=== PATIENT | male | born 1975 | race African-American/Black ===

== ENCOUNTER 2020-11-06 08:01 | Emergency (ER) | payer MEDICAID, SELFPAY ==
[2020-11-06 08:02] VITALS: BP 167/136; PULSE 107; RESP 18; TEMP 37.6; O2SAT 97; BMI 35.7
--- NOTE | 2020-11-06 08:08 | XR_ITS ---
WS: [id number] Right knee, 3 views, 11/06/2020 Clinical Data: fall Comparison: None. Findings: No fractures or dislocations are seen. The joint spaces are normal. The patella is intact. The soft t issues are unremarkable. XR/XR knee RT 3V* [id number] Impression: Negative right knee.
--- NOTE | 2020-11-06 08:08 | XR_ITS ---
WS: [id number] Left wrist, 3 views, 11/06/2020 Clinical Data: fall Comparison: None. Findings: No fractures or dislocations are seen. The carpal bones are intact. There is no soft tissue swelling. The distal radius and ulna are not remarkable. XR/XR wrist LT min 3V* [id number] Impression: Negative left wrist.
--- NOTE | 2020-11-06 08:08 | XR_ITS ---
WS: [id number] Right ankle, 3 views, 11/06/2020 Clinical Data: fall Comparison: None. Findings: No fractures or dislocations are seen. The ankle mortise is normal. The talus and calcaneus are unrem arkable. There is soft tissue swelling over the lateral malleolus. There is a small plantar spur. XR/XR ankle RT min 3V* [id number] Impression: 1. Soft tissue swelling over lateral malleolus. 2. Negative for right ankle fracture.
--- NOTE | 2020-11-06 08:09 | ED_ITS ---
HPI - Fall General: Chief Complaint: Fall Stated Complaint: FALL, R ANKLE, L WRIST PAIN Time Seen by Provider: 11/06/20 08:02 Source: patient and EMS Mode of arrival: EMS Limitations: no limitations History of Present Illness: HPI Narrative: Patient is a 45-year-old male who presents to ED today via EMS for evaluation following a slip and fall. Patient tells me accidentally slipped on a rock yesterday and fell. He states he twisted his right ankle. He tells me he normally has pain in his right knee but it is worse than baseline currently. He also feels like he sprained his left wrist. He did not strike his head/no LOC. No neck or back pain. Patient was ambulatory following the fall but states when he woke up this morning he noticed the right ankle very swollen and more painful. He states he is not able to ambulate on the extremity due to the discomfort of his ankle and knee. MD complaint: fall Onset (ago): day(s) (yesterday) Fall from: standing Fall witnessed: yes, by family Place fall occurred: other (outdoors) Loss of consciousness: None Prolonged down time: no Symptoms prior to fall: none Context: tripped/slipped Location of injury - extremities: Left: arm and Right: knee and ankle Associated symptoms-after fall: Reports difficulty walking (secondary to pain in R ankle/knee); Denies chest pain or neck pain Review of Systems Const: Denies: fever(s) Eyes: Denies: change in vision or blurry vision Card: Denies: chest pain Resp: Denies: dyspnea Musc: Reports: joint pain (R ankle, R knee, L wrist) and joint swelling (R ankle); Denies: neck pain, back pain, extremity pain, extremity swelling, joint redness or joint warmth Neuro: Reports: difficulty walking (secondary to pain in R ankle/knee); Denies: numbness in extremities, weakness in extremities or sensory changes Physical Exam Const: COMMON NORMALS: no acute distress, patient oriented x3, no limitations, healthy appearing and alert GENERAL APPEARANCE: cooperative ORIENTATION/CONSCIOUSNESS: Yes awake, Yes oriented to person, Yes oriented to place and Yes oriented to time HENMT: COMMON NORMALS: normocephalic and atraumatic HEAD & SCALP: normocephalic and atraumatic Neck/C-Spine: COMMON NORMALS: full ROM CERVICAL SPINE: Yes cervical ROM normal, No pain with cervical ROM and No Cervical spine tenderness Resp: COMMON NORMALS: normal respiratory effort Back/Pelvis: COMMON NORMALS: thoracic and lumbar spine normal to inspection, no thoracic nor lumbar tenderness and thoraco-lumbar ROM normal Extremity: GENERAL: Yes normal exam except as noted LEFT UPPER EXTREMITY: Yes wrist (mild tenderness to dorsal distal wrist; NV intact; good ROM) RIGHT LOWER EXTREMITY: Yes knee joint (TTP medial joint line; effusion present that pt states is normal for him) Right knee: Yes ROM (normal) and Yes neurovascular exam (normal) and Yes foot & digits (swelling and tenderness to medial/lateral ankle; NV intact; no deformities ) Neuro: HEATHER COMA SCALE: document GCS findings [place] coma scale eye opening: Spontaneous Heather coma scale verbal response: Orientated [place] coma scale motor response: Obey commands [place] coma scale total score: 15 COMMON NORMALS: patient oriented x3 SENSORIUM/ORIENTATION: Yes alert, Yes oriented to person, Yes oriented to place and Yes oriented to time Skin: TRAUMA: no lacerations or abrasions Course Vital Signs: Vital signs: Vital Signs Temperature 99.7 F H 11/06/20 08:02 Pulse Rate 107 H 11/06/20 08:02 Respiratory Rate 18 11/06/20 08:02 Blood Pressure 167/136 11/06/20 08:02 Pulse Oximetry 97 11/06/20 08:02 MDM - Fall MDM Narrative: Medical decision making narrative: XRs neg. Will DC with JOSEPHINE wrap/crutches and instructions for RICE therapy. Follow up with PCP in one week for continued or non-improving pain. Imaging Data^: XR R knee: Radiologist's impression: [address] [id number] ReportSigned Patient: Sania Marcus #: [id number]: [id number]#:[id number]/Sex: 45 / MADM Date: 11/06/20Loc: ERRoom/Bed:Attending Dr: Ordering Provider/Ordering MD: Jovanna Stanley Date of Service: 11/06/20 Procedure(s): XR knee RT 3V* [id number] Accession Number(s): [id number] Report Number: [id number] WS: [id number] Right knee, 3 views, 11/06/2020 Clinical Data: fall Comparison: None. Findings: No fractures or dislocations are seen. The joint spaces are normal. The patella is intact. The soft tissues are unremarkable. XR/XR knee RT 3V* [id number] Impression: Negative right knee. Dictated By:Bambi Oconnell MDSigned By:Bambi Oconnell MDSigned Date/Time:11/06/20 0831DD/ 0830 XR L wrist: Radiologist's impression: [employer] [address] [place] [id number] XRay Report Signed Patient: Derek Marcus Unit #: [id number] : 1975 Age/Sex: 45 / M ADM Date: 11/06/20 Loc: ER Room/Bed: Attending Dr: Ordering Provider/Ordering MD: Jovanna Stanley Date of Service: 11/06/20 Procedure(s): XR wrist LT min 3V* [id number] Accession Number(s): [id number] Report Number: [id number] WS: [id number] Left wrist, 3 views, 11/06/2020 Clinical Data: fall Comparison: None. Findings: No fractures or dislocations are seen. The carpal bones are intact. There is no soft tissue swelling. The distal radius and ulna are not remarkable. XR/XR wrist LT min 3V* [id number] Impression: Negative left wrist. Dictated By: Bambi Oconnell MD Signed By: Bambi Oconnell MD Signed Date/Time: 11/06/20 0833 DD/ 0832 XR R ankle: Radiologist's impression: [employer] [address] [place] [id number] XRay Report Signed Patient: Derek Marcus Unit #: [id number] : 1975 Age/Sex: 45 / M ADM Date: 11/06/20 Loc: ER Room/Bed: Attending Dr: Ordering Provider/Ordering MD: Jovanna Stanley Date of Service: 11/06/20 Procedure(s): XR ankle RT min 3V* 36665 Accession Number(s): [id number] Report Number: [id number] WS: [id number] Right ankle, 3 views, 11/06/2020 Clinical Data: fall Comparison: None. Findings: No fractures or dislocations are seen. The ankle mortise is normal. The talus and calcaneus are unremarkable. There is soft tissue swelling over the lateral malleolus. There is a small plantar spur. XR/XR ankle RT min 3V* 11272 Impression: 1. Soft tissue swelling over lateral malleolus. 2. Negative for right ankle fracture. Dictated By: Bambi Oconnell MD Signed By: Bambi Oconnell MD Signed Date/Time: 11/06/20831 DD/ 0 Discharge Plan Discharge Patient Disposition: Home Clinical Impression: Inversion sprain of right ankle Qualifiers: Encounter type: initial encounter Qualified Code(s): S93.401A - Sprain of unspecified ligament of right ankle, initial encounter Left wrist sprain Qualifiers: Encounter type: initial encounter Qualified Code(s): S63.502A - Unspecified sprain of left wrist, initial encounter Condition: Stable Discharge Orders: Discharge ED (Routine); Ordered 11/06/20 Ordered By: Jovanna Stanley Patient Instructions: Ankle Sprain (ED), RICE Therapy (ED) Coding Level of Care Code ED [employer] for Chg Fwd Exam Comprehensive
== END 2020-11-06 08:50 | disposition home or self-care (01) ==
PROVIDERS: Emergency Provider Physician Assistant
DX: S93.401A Sprain of unspecified ligament of right ankle, initial encounter (principal); S63.502A Unspecified sprain of left wrist, initial encounter; W01.0XXA Fall on same level from slipping, tripping and stumbling without subsequent striking against object, initial encounter
CPT/HCPCS: 73110; 73562; 73610; 99283; E0114

== ENCOUNTER 2020-11-11 15:31 | Outpatient (CLI) | payer MEDICAID, SELFPAY ==
--- NOTE | 2020-11-11 | XR_ITS ---
WS: [id number] SCREENING DEXA SCAN [facility] CLINICAL INFORMATION: OSTEOPENIA COMPARISON: None. FINDINGS: The L1-L4 bone mineral density measures 1.22. This corresponds to a T score score of 0.1 and Z score of -1.3. Left femoral neck bone mineral density measures 0.980 g/cm2. This corresponds to a T score of -0.8 an d Z score of -2.0. Right femoral neck bone mineral density measures 0.991 g/cm2. This corresponds to a T score -0.8of an d Z score of -1.9. Mean femoral neck bone mineral density measures 0.985 g/cm2. This corresponds to a T score of -0.8 an d Z score of -1.9. XR/XR DEXA axial skeleton* 41447 IMPRESSION: Normal bone mineralization. Patient's FRAX calculated 10 year probability for major osteoporotic fracture i s 0.8 % and osteoporotic hip fracture is 0.0%.
== END 2020-11-11 15:32 | disposition home or self-care (01) ==
LOC: RADWPI 15:35
PROVIDERS: Visit Provider Family Medicine
DX: M85.80 Other specified disorders of bone density and structure, unspecified site (principal)
CPT/HCPCS: 77080

== ENCOUNTER 2021-06-17 10:39 | Outpatient (CLI) | payer MEDICAID, SELFPAY ==
--- NOTE | 2021-06-17 10:45 | US_ITS ---
WS: [id number] ULTRASOUND RENAL TECHNIQUE: Ultrasound examination of both kidneys. CLINICAL INFORMATION: STAGE 3B CHRONIC KIDNEY DISEASE COMPARISON: None. FINDINGS: RIGHT: Right kidney is normal in size and appearance. Echogenicity: Normal. Cortical thickness: 1.3 cm; Normal. Hydronephrosis: None. Perinephric fluid: None. Right kidney measures: 12.0 cm x 4.8 cm x 4.7 cm. LEFT: Superior pole left kidney is difficult to visualize. Left kidney is normal in size and appearance. Echogenicity: Normal. Cortical thickness: 1.3 cm; Normal. Hydronephrosis: None. Perinephric fluid: None. Left kidney measures: 11.4 cm x 3.8 cm x 4.7 cm. Normal visualized aorta. Normal bladder. US/US renal BI* [id number] IMPRESSION: 1. Superior pole left kidney is difficult to visualize. 2. Otherwise normal renal ultrasound
[2021-06-17 11:25] LABS: Basophils # 0.1 10^3/uL (0.0-0.1); Basophils % 1.3 %; Eosinophils # 0.2 10^3/uL (0.0-0.8); Eosinophils % 3.8 %; Hematocrit 41.2 % (42.0-52.0); Hemoglobin 13.4 g/dL (11.7-16.6); Lymphocytes # 1.4 10^3/uL (0.8-4.8); Lymphocytes % 35.9 %; Mean Corpuscular HGB Conc 32.5 g/dL (30.0-36.0); Mean Corpuscular Hemoglobin 30.8 pg (28.0-34.0); Mean Corpuscular Volume 94.7 fl (80-94); Mean Platelet Volume 12.5 fL (7.4-10.4); Monocytes # 0.5 10^3/uL (0.2-0.9); Monocytes % 12.6 %; Neutrophils # 1.83 10^3/uL (1.8-7.7); Neutrophils % 45.9 %; Nucleated Red Blood Cells % 0 %; Platelet Count 214 10^3/cmm (130-400); Red Blood Count 4.35 10^6/uL (4.1-5.3); Red Cell Distribution Width 14.5 % (12.1-15.1)
[2021-06-17 11:44] LABS: Albumin Level 3.9 g/dL (3.5-5.2); Blood Urea Nitrogen 11 mg/dL (6-20); Calcium 8.1 mg/dL (8.5-10.5); Carbon Dioxide 23 mmol/L (22-29); Chloride 104 mmol/L (98-107); Glomerular Filtration Rate 57.1 mL/min (90-130); Glucose 91 mg/dL (65-115); Phosphorus 2.7 mg/dL (2.5-4.5); Sodium 139 mmol/L (136-145)
[2021-06-17 11:47] LABS: Anion Gap 16.5 (5-19); Potassium 4.5 mmol/L (3.5-5.1)
[2021-06-17 12:22] LABS: Calcium 8.1 mg/dL (8.5-10.5)
[2021-06-17 12:29] LABS: Parathyroid Hormone 125.4 pg/mL (15-65)
== END 2021-06-17 10:40 | disposition home or self-care (01) ==
PROVIDERS: Visit Provider Registered Nurse
DX: N18.32 Chronic kidney disease, stage 3b (principal); N18.4 Chronic kidney disease, stage 4 (severe)
CPT/HCPCS: 36415; 76770; 80069; 82310; 82652; 83970; 85025

== ENCOUNTER 2021-09-09 11:46 | Outpatient (CLI) | payer MEDICAID, SELFPAY ==
--- NOTE | 2021-09-09 12:01 | XRR_ITS ---
PROCEDURE INFORMATION: Exam: XR Right Knee Exam date and time: 09/09/2021 12:01 PM Age: 46 years old Clinical indication: Pain; Knee; Right; Patient HX: Siatic and bones spurs, numbness in both thighs; Additional info: Pain in right knee TECHNIQUE: Imaging protocol: XR Right knee. Views: 1 or 2 views. COMPARISON: CR XR knee RT 3V* [id number] 11/06/2020 8:15 AM FINDINGS: Bones/joints: Normal. Soft tissues: Normal. XR/XR knee RT 1-2V 94910 IMPRESSION: No acute findings.
--- NOTE | 2021-09-09 12:01 | XRR_ITS ---
PROCEDURE INFORMATION: Exam: XR Lumbosacral Spine Exam date and time: 09/09/2021 12:01 PM Age: 46 years old Clinical indication: Low back pain; Patient HX: Siatic and bones spurs, numbness in both thighs; Additional info: Chronic back pain TECHNIQUE: Imaging protocol: XR of the lumbosacral spine. Views: 4 or 5 views. COMPARISON: No relevant prior studies available. FINDINGS: Bones/joints: Multilevel mild productive degenerative endplate changes throughout the visualized thoracolumbar spine. Soft tissues: Unremarkable. XR/XR lumbar spine min 4V 27460 IMPRESSION: Multilevel mild productive degenerative endplate changes throughout the visualized thoracolumbar spine.
== END 2021-09-09 11:47 | disposition home or self-care (01) ==
LOC: RAD 11:52
PROVIDERS: PCP Nurse Practitioner Family; Visit Provider Nurse Practitioner Family
DX: M25.561 Pain in right knee (principal); M54.50 Low back pain, unspecified
CPT/HCPCS: 72110; 73560

== ENCOUNTER 2021-10-01 06:57 | Outpatient (CLI) | payer MEDICAID, SELFPAY ==
--- NOTE | 2021-10-01 12:59 | PFTS_ITS ---
Date of Study:10/01/21 Date of Dictation: MECHANICS: Forced vital capacity (FVC) is reduced. Forced expiratory volume in one second (FEV1) is reduced. FEV1/FVC is normal. FLOW VOLUME LOOP: Reduced flow at all lung volumes with scooping. LUNG VOLUMES: Total lung capacity (TLC) is normal. Residual volume (RV) is increased. DIFFUSING CAPACITY FOR CARBON MONOXIDE: Mild reduced. INTERPRETATION: The postbronchodilator spirometry is consistent with moderate restriction. However, this is likely secondary to paradoxical bronchospasm. The prebronchodilator spirometry is consistent with mild restriction. Lung volumes are consistent with air trapping. Gas exchange (DLCO) is mildly reduced. The overall pulmonary function tests are consistent with nonspecific ventilatory limitations. The spirometry is consistent with restrictive defect however there is no reduction in total lung capacity. The patient likely has a combined obstructive and restrictive ventilatory defect. MTDD
== END 2021-10-01 06:58 | disposition home or self-care (01) ==
LOC: RT 06:59
PROVIDERS: PCP Nurse Practitioner Family; Visit Provider Nurse Practitioner Family
DX: J43.9 Emphysema, unspecified (principal); R06.02 Shortness of breath; Z72.0 Tobacco use
CPT/HCPCS: 94060; 94726; 94729; 99204; J7611

== ENCOUNTER → 2022-01-29 13:44 | Outpatient (BNVA) | payer MEDICAID, SELFPAY | PROVIDERS: PCP Nurse Practitioner Family; Referring Provider Nurse Practitioner Family; Visit Provider Orthopaedic Surgery | DX: M54.50 Low back pain, unspecified (principal); M79.606 Pain in leg, unspecified | CPT/HCPCS: 99204 ==

== ENCOUNTER 2022-03-12 07:25 | Outpatient (CLI) | payer MEDICAID, SELFPAY ==
--- NOTE | 2022-03-12 07:37 | US_ITS ---
WS: [id number] ULTRASOUND RENAL TECHNIQUE: Ultrasound examination of both kidneys. CLINICAL INFORMATION: FLANK PAIN COMPARISON: Ultrasound June 17, 2021 FINDINGS: RIGHT: Right kidney is normal in size and appearance. Echogenicity: Normal. Cortical thickness: 1.5 cm; Normal. Hydronephrosis: None. Perinephric fluid: None. Right kidney measures: 11.4 cm x 4.4 cm x 4.9 cm. LEFT: Left kidney is normal in size and appearance. Echogenicity: Normal. Cortical thickness: 1.7 cm; Normal. Hydronephrosis: None. Perinephric fluid: None. Left kidney measures: 11.5 cm x 4.8 cm x 4.8 cm. Normal visualized aorta. US/US renal BI* [id number] IMPRESSION: 1. No hydronephrosis in either kidney. Kidneys are normal in appearance today. 2. Normal bladder. 3. No other suspicious findings.
== END 2022-03-12 07:26 | disposition home or self-care (01) ==
LOC: RAD 07:25
PROVIDERS: PCP Nurse Practitioner Family; Visit Provider Registered Nurse
DX: R10.9 Unspecified abdominal pain (principal)
CPT/HCPCS: 76770

== ENCOUNTER → 2022-03-13 09:58 | Outpatient (BNVA) | payer MEDICAID, SELFPAY | PROVIDERS: PCP Nurse Practitioner Family; Visit Provider Internal Medicine Cardiovascular Disease | DX: Z45.02 Encounter for adjustment and management of automatic implantable cardiac defibrillator (principal) | CPT/HCPCS: 93284 ==

== ENCOUNTER 2022-05-05 12:18 | Outpatient (CLI) | payer MEDICAID, SELFPAY ==
[2022-05-05 12:59] LABS: Basophils % 0.7 %; Eosinophils # 0.1 10^3/uL (0.0-0.8); Eosinophils % 1.7 %; Hematocrit 43.5 % (42.0-52.0); Hemoglobin 14.8 g/dL (11.7-16.6); Lymphocytes # 1.5 10^3/uL (0.8-4.8); Lymphocytes % 32.5 %; Mean Corpuscular Hemoglobin 31.4 pg (28.0-34.0); Mean Corpuscular Volume 92.2 fl (80-94); Mean Platelet Volume 12.2 fL (7.4-10.4); Monocytes # 0.5 10^3/uL (0.2-0.9); Monocytes % 9.8 %; Neutrophils # 2.52 10^3/uL (1.8-7.7); Neutrophils % 55.1 %; Nucleated Red Blood Cells % 0 %; Platelet Count 245 10^3/cmm (130-400); Red Blood Count 4.72 10^6/uL (4.1-5.3); Red Cell Distribution Width 16.2 % (12.1-15.1); White Blood Count 4.6 10^3/uL (4.0-10.0)
[2022-05-05 13:35] LABS: 25 Hydroxy Vitamin D 42 ng/mL (30-100); Albumin Level 3.8 g/dL (3.5-5.2); Blood Urea Nitrogen 11 mg/dL (6-20); Calcium 8.9 mg/dL (8.5-10.5); Carbon Dioxide 28 mmol/L (22-29); Chloride 97 mmol/L (98-107); Glomerular Filtration Rate 66.3 mL/min (90-130); Glucose 122 mg/dL (65-115); Phosphorus 2.7 mg/dL (2.5-4.5); Sodium 137 mmol/L (136-145)
== END 2022-05-05 12:19 | disposition home or self-care (01) ==
LOC: LAB 12:20
PROVIDERS: PCP Nurse Practitioner Family; Visit Provider Registered Nurse
DX: R07.9 Chest pain, unspecified (principal); I13.0 Hypertensive heart and chronic kidney disease with heart failure and stage 1 through stage 4 chronic kidney disease, or unspecified chronic kidney disease; I50.9 Heart failure, unspecified; N18.9 Chronic kidney disease, unspecified; Z95.810 Presence of automatic (implantable) cardiac defibrillator; R00.0 Tachycardia, unspecified
CPT/HCPCS: 36415; 80069; 82306; 82310; 83970; 85025; 99214

== ENCOUNTER 2022-05-18 12:52 | Outpatient (CLI) | payer MEDICAID, SELFPAY ==
[2022-05-18 13:34] LABS: Creatinine Urine, Random 53 mg/dL (39-259); Microalbum Creatinine Ratio Ur 19 mg/dL (0-20); Microalbumin Random Urine 1 ug/dL (0-20)
== END 2022-05-18 12:53 | disposition home or self-care (01) ==
LOC: LAB 12:55
PROVIDERS: PCP Nurse Practitioner Family; Visit Provider Registered Nurse
DX: N18.32 Chronic kidney disease, stage 3b (principal); R56.9 Unspecified convulsions
CPT/HCPCS: 82044; 95812; 95816

== ENCOUNTER 2022-05-21 10:06 | Outpatient (CLI) | payer MEDICAID, SELFPAY ==
--- NOTE | 2022-05-21 10:45 | IR_ITS ---
WS: [id number] LUMBAR MYELOGRAM HISTORY: M54.9 - Dorsalgia, unspecified COMPARISON: None available. FLUOROSCOPY TIME: 1min [id number] # of spot films: 5 Procedure, risks and complications were explained to the patient. Risks including bleeding, infection , headaches, allergic reaction and seizures. Consent has been obtained. With the patient in prone position the skin over the lumbar region is cleansed with ChloraPrep and an esthetized with lidocaine. 22-gauge spinal needle is inserted into the thecal sac at the appropriate level determined by fluoroscopy. Omnipaque 240; 12 ml is injected slowly under fluoroscopy with no co mplications. Needle bevel is perpendicular to the longitudinal fibers of the dura. Stylet is reinsert ed prior to removal of the needle. Patient tolerated the procedure well. Patient will proceed to CT f or further evaluation. Normal posterior lumbar alignment. No fractures. Very mild disc bulging encroaching upon the ventral thecal sac at L3-4 and L4-5. IR/IR myelogram [place] lumbar 48971 IMPRESSION: 1. Uncomplicated lumbar myelogram. CT to follow. 2. No significant stenosis or fractures identified.
--- NOTE | 2022-05-21 10:45 | CT_ITS ---
WS: [id number] CT MYELOGRAM LUMBAR SPINE HISTORY: M54.9 - Dorsalgia, unspecified TECHNIQUE: Contiguous 2.0 mm axial imaging performed from T12 through the mid sacral level. Bone and soft tissue windows reviewed. Sagittal and coronal reformats are submitted and reviewed. DLP: 1400.[address] scans at [facility] use at least one of these dose optimization techniques: automated e xposure control; mA and/or kV adjustment per patient size (includes targeted exams where dose is matc hed to clinical indication); or iterative reconstruction. COMPARISON: None available. Normal posterior lumbar alignment. Disc spaces and vertebral body heights are normal. Conus tapers no rmally and ends near the mid L2 level. No pars defects. L1-L2: Normal. L2-L3: Normal. L3-L4: Very mild disc bulging with mild facet joint arthritis. Mild ligamentum flavum hypertrophy. No high-grade stenosis. There is very mild narrowing and encroachment upon the subarticular recesses an d the foramina. Slightly greater on the RIGHT. L4-L5: Mild annular disc bulge. No focal protrusion. Mild facet joint arthritis. Very mild widening o f the RIGHT facet joint. Mild bilateral subarticular recess and foraminal encroachment. L5-S1: Minimal disc bulging. Mild bilateral facet joint arthritis. Minimal foraminal narrowing. Mild bilateral perinephric stranding. Hyperdense 6 mm mass within the posterior LEFT kidney. Probably representing a hemorrhagic cyst. No obstruction. CT/CT lumbar spine w con [id number] IMPRESSION: 1. No high-grade central or foraminal stenosis. No large disc protrusions. 2. Mild foraminal and subarticular recess encroachment at L3-4 and L4-5 by dis c and facet disease. 3. Mild foraminal narrowing at L5-S1.
[2022-05-21] MEDS: iohexol 240 mg/mL 50 mL Btl INTRATHECA (11:18)
== END 2022-05-21 10:07 | disposition home or self-care (01) ==
LOC: RAD 10:07
PROVIDERS: PCP Nurse Practitioner Family; Visit Provider Orthopaedic Surgery
DX: M54.9 Dorsalgia, unspecified (principal)
CPT/HCPCS: 62304; 72132; Q9966

== ENCOUNTER → 2022-06-30 14:26 | Outpatient (BNVA) | payer MEDICAID, SELFPAY | PROVIDERS: PCP Nurse Practitioner Family; Visit Provider Orthopaedic Surgery | DX: M47.816 Spondylosis without myelopathy or radiculopathy, lumbar region (principal) | CPT/HCPCS: 99214 ==

== ENCOUNTER → 2022-07-27 09:51 | Outpatient (BNVA) | payer MEDICAID, SELFPAY | PROVIDERS: PCP Nurse Practitioner Family; Visit Provider Anesthesiology Pain Medicine | DX: M54.16 Radiculopathy, lumbar region (principal); M47.816 Spondylosis without myelopathy or radiculopathy, lumbar region | CPT/HCPCS: 99204 ==

== ENCOUNTER → 2022-08-13 12:58 | Outpatient (BNVA) | payer MEDICAID, SELFPAY | PROVIDERS: PCP Nurse Practitioner Family; Visit Provider Anesthesiology Pain Medicine | DX: M47.816 Spondylosis without myelopathy or radiculopathy, lumbar region (principal) | CPT/HCPCS: 64493; 64494; 64495; J3490 ==

== ENCOUNTER → 2022-08-27 10:50 | Outpatient (BNVA) | payer MEDICAID, SELFPAY | PROVIDERS: PCP Nurse Practitioner Family; Visit Provider Anesthesiology Pain Medicine | DX: M47.816 Spondylosis without myelopathy or radiculopathy, lumbar region (principal) | CPT/HCPCS: 99214 ==

== ENCOUNTER → 2022-09-09 13:49 | Outpatient (BNVA) | payer MEDICAID, SELFPAY | PROVIDERS: PCP Nurse Practitioner Family; Visit Provider Anesthesiology Pain Medicine | DX: M54.16 Radiculopathy, lumbar region (principal); Z95.810 Presence of automatic (implantable) cardiac defibrillator | CPT/HCPCS: 64635; 64636; 93289; J1030 ==

== ENCOUNTER → 2022-09-29 09:21 | Outpatient (BNVA) | payer MEDICAID, SELFPAY | PROVIDERS: PCP Nurse Practitioner Family; Visit Provider Anesthesiology Pain Medicine | DX: M47.816 Spondylosis without myelopathy or radiculopathy, lumbar region (principal) | CPT/HCPCS: 99214 ==

== ENCOUNTER → 2022-10-26 10:03 | Outpatient (BNVA) | payer MEDICAID, SELFPAY | PROVIDERS: PCP Nurse Practitioner Family; Visit Provider Anesthesiology Pain Medicine | DX: M47.816 Spondylosis without myelopathy or radiculopathy, lumbar region (principal); M48.061 Spinal stenosis, lumbar region without neurogenic claudication | CPT/HCPCS: 99214 ==

== ENCOUNTER → 2022-11-26 10:15 | Outpatient (BNVA) | payer MEDICAID, SELFPAY | PROVIDERS: PCP Nurse Practitioner Family; Visit Provider Orthopaedic Surgery | DX: Z01.818 Encounter for other preprocedural examination (principal); M48.062 Spinal stenosis, lumbar region with neurogenic claudication | CPT/HCPCS: 36415; 80053; 85025; 99214 ==

== ENCOUNTER → 2023-01-15 10:54 | Outpatient (BNVA) | payer MEDICAID, SELFPAY | PROVIDERS: PCP Nurse Practitioner Family; Visit Provider Internal Medicine Cardiovascular Disease | DX: Z01.818 Encounter for other preprocedural examination (principal); J41.0 Simple chronic bronchitis; Z95.810 Presence of automatic (implantable) cardiac defibrillator; I13.0 Hypertensive heart and chronic kidney disease with heart failure and stage 1 through stage 4 chronic kidney disease, or unspecified chronic kidney disease; N18.31 Chronic kidney disease, stage 3a; I50.9 Heart failure, unspecified; F17.210 Nicotine dependence, cigarettes, uncomplicated | CPT/HCPCS: 93289; 99214 ==

== ENCOUNTER → 2023-01-18 10:29 | Outpatient (BNVA) | payer MEDICAID, SELFPAY | PROVIDERS: PCP Nurse Practitioner Family; Visit Provider Anesthesiology Pain Medicine | DX: M48.062 Spinal stenosis, lumbar region with neurogenic claudication (principal); M47.816 Spondylosis without myelopathy or radiculopathy, lumbar region | CPT/HCPCS: 99213 ==

== ENCOUNTER → 2023-02-16 15:54 | Outpatient (BNVA) | payer MEDICAID, SELFPAY | PROVIDERS: PCP Nurse Practitioner Family; Visit Provider Orthopaedic Surgery | DX: M48.062 Spinal stenosis, lumbar region with neurogenic claudication (principal); Z01.818 Encounter for other preprocedural examination | CPT/HCPCS: 72110; 99214 ==

== ENCOUNTER 2023-02-25 09:47 | Outpatient (CLI) | payer MEDICAID, SELFPAY ==
[2023-02-25 11:18] LABS: Basophils % 0.6 %; Eosinophils # 0.2 10^3/uL (0.0-0.8); Eosinophils % 3.9 %; Lymphocytes # 1.4 10^3/uL (0.8-4.8); Lymphocytes % 28.5 %; Mean Corpuscular HGB Conc 34.2 g/dL (30-55); Mean Corpuscular Hemoglobin 31.3 pg (27-33); Mean Corpuscular Volume 91.3 fl (82-101); Mean Platelet Volume 12.5 fL (7.4-10.4); Monocytes # 0.5 10^3/uL (0.2-0.9); Monocytes % 10.7 %; Neutrophils # 2.72 10^3/uL (1.8-7.7); Neutrophils % 56.1 %; Nucleated Red Blood Cells % 0 %; Platelet Count 206 10^3/cmm (157-399); Red Blood Count 4.16 10^6/uL (3.85-5.65); Red Cell Distribution Width 12.8 % (12.1-15.1); White Blood Count 4.85 10^3/uL (3.29-11.43)
[2023-02-25 11:36] LABS: Alanine Aminotransferase 15 U/L (0-41); Albumin Level 4.3 g/dL (3.5-5.2); Alkaline Phosphatase 98 U/L (40-130); Anion Gap 15.9 (5-19); Aspartate Amino Transferase 23 U/L (0-40); Blood Urea Nitrogen 26 mg/dL (6-20); Calcium 8.8 mg/dL (8.5-10.5); Carbon Dioxide 24 mmol/L (22-29); Chloride 101 mmol/L (98-107); Globulin 3.2 g/dL (1.3-4.6); Glomerular Filtration Rate 52.8 mL/min (90-130); Glucose 122 mg/dL (65-115); Osmolality Calculated 290 mOsm/kg (285-295); Potassium 3.9 mmol/L (3.5-5.1); Sodium 137 mmol/L (136-145); Total Bilirubin 0.5 mg/dL (0.15-1.2); Total Protein 7.5 g/dL (6.6-8.7)
== END 2023-02-25 09:48 | disposition home or self-care (01) ==
LOC: LAB 09:50
PROVIDERS: PCP Nurse Practitioner Family; Visit Provider Orthopaedic Surgery
DX: Z01.818 Encounter for other preprocedural examination (principal); M48.062 Spinal stenosis, lumbar region with neurogenic claudication
CPT/HCPCS: 36415; 80053; 85025

== ENCOUNTER → 2023-03-02 14:12 | Outpatient (BNVA) | payer MEDICAID, SELFPAY | PROVIDERS: PCP Nurse Practitioner Family; Visit Provider Family Medicine | DX: Z01.818 Encounter for other preprocedural examination (principal) | CPT/HCPCS: 81000 ==

== ENCOUNTER → 2023-05-10 10:28 | Outpatient (BNVA) | payer MEDICAID, SELFPAY | PROVIDERS: PCP Nurse Practitioner Family; Visit Provider Specialist | DX: G40.909 Epilepsy, unspecified, not intractable, without status epilepticus (principal); Z95.810 Presence of automatic (implantable) cardiac defibrillator; F17.210 Nicotine dependence, cigarettes, uncomplicated | CPT/HCPCS: 99205 ==

== ENCOUNTER 2023-05-10 12:46 | Outpatient (CLI) | payer MEDICAID, SELFPAY ==
--- NOTE | 2023-05-10 13:01 | XRR_ITS ---
PROCEDURE INFORMATION: Exam: XR Abdomen Exam date and time: 05/10/2023 1:23 PM Age: 47 years old Clinical indication: Other: Poor urinary stream TECHNIQUE: Imaging protocol: Radiologic exam of the abdomen. Views: Frontal supine view of the abdomen. 1 View. COMPARISON: No relevant prior studies available. FINDINGS: Gastrointestinal tract: Normal. No bowel dilation. Organs: No identifiable urinary tract calcifications. Bones/joints: Unremarkable. XR/XR abdomen 1V* [id number] IMPRESSION: No acute findings.
== END 2023-05-10 12:47 | disposition home or self-care (01) ==
LOC: RAD 12:50
PROVIDERS: PCP Nurse Practitioner Family; Visit Provider Nurse Practitioner Family
DX: R39.12 Poor urinary stream (principal)
CPT/HCPCS: 74018

== ENCOUNTER 2023-05-12 14:20 | Inpatient (IN) | payer MEDICAID, SELFPAY ==
[2023-05-12] VITALS (25 sets, daily range): BP systolic 128–173; BP diastolic 74–129; PULSE 67–94; RESP 9–25; TEMP 36.1–36.7; O2SAT 94–100; BMI 29.9
--- NOTE | 2023-05-12 | XR_ITS ---
WS: [id number] Lumbar spine, C-arm fluoroscopy views, 05/12/2023 Clinical Data: OR pic, lumbar spinal fusion Comparison: Lumbar spine, 02/16/2023 Findings: Dr. Matamoros performed a posterior lumbosacral fusion. Impression: Posterior lumbosacral fusion.
[2023-05-12] MEDS: sodium chloride 0.9% 1,000 ML 30 ML IV (07:14)
[2023-05-12 07:28] LABS: Basophils # 0.1 10^3/uL (0.0-0.1); Basophils % 1.1 %; Eosinophils # 0.2 10^3/uL (0.0-0.8); Eosinophils % 4.3 %; Hematocrit 41.2 % (37-53); Lymphocytes % 42.3 %; Mean Corpuscular HGB Conc 33.5 g/dL (30-55); Mean Corpuscular Volume 95.6 fl (82-101); Mean Platelet Volume 11.7 fL (7.4-10.4); Monocytes # 0.4 10^3/uL (0.2-0.9); Monocytes % 8.5 %; Neutrophils # 2.03 10^3/uL (1.8-7.7); Neutrophils % 43.4 %; Nucleated Red Blood Cells % 0 %; Platelet Count 235 10^3/cmm (157-399); Red Blood Count 4.31 10^6/uL (3.85-5.65); Red Cell Distribution Width 14.1 % (12.1-15.1); White Blood Count 4.68 10^3/uL (3.29-11.43)
[2023-05-12 07:51] LABS: Blood Urea Nitrogen 20 mg/dL (6-20); Calcium 8.9 mg/dL (8.5-10.5); Carbon Dioxide 25 mmol/L (22-29); Chloride 102 mmol/L (98-107); Glomerular Filtration Rate 52.8 mL/min (90-130); Glucose 111 mg/dL (65-115); Osmolality Calculated 289 mOsm/kg (285-295); Sodium 138 mmol/L (136-145)
[2023-05-12 07:53] LABS: Anion Gap 15.5 (5-19); Potassium 4.5 mmol/L (3.5-5.1)
--- NOTE | 2023-05-12 09:01 | P.ANESASSM_ITS ---
Pre-Anesthetic Assessment Height/Weight: Height 1.91 m Weight 108.862 kg Temp Pulse Resp BP Pulse Ox O2 Del Method 98.1 F 88 18 134/91 98 Room Air 05/12/23 07:03 05/12/23 07:03 05/12/23 07:03 05/12/23 07:03 05/12/23 07:03 05/12/23 07:03 Preop Diagnosis: Lumbar facet arthritis Operation Date: 05/12/23 09:40 Proposed Procedures p Spinal Fusion PSF(Not Applicable) - Ian Matamoros DO s Posterior Lumbar Interbody Fusion PLIF(Not Applicable) - Ian Matamoros DO s Sacroiliac Joint Fusion SI Joint Fusion(Not Applicable) - Ian Matamoros DO Familial anesthetic complications: none Was Beta Checo taken within 24 hours: Yes Was Clonidine taken within 24 hours: N/A Last intake: Intake Last Liquid Date 05/11/23 Last Liquid Time 21:00 Last Solid Date 05/11/23 Last Solid Time 23:00 Social Tobacco and No alcohol Exam alert, oriented x 3, clear to auscultation bilaterally and regular rate & rhythm Airway Submandibular: within normal limits Cervical ROM: within normal limits Mallampati: Class II Dentition: full Pulmonary Chronic Obstructive Pulmonary Disease CV/HEM Congestive Heart Failure (EF 15%) Pacer/AICD Chronic Renal Insufficiency Cr 1.7 [facility] [place] Lower Back Pain and Osteoarthritis/DJD Neuropsych Anxiety and Depression Anesthetic Plan ASA status: 4 Anesthesia: General Other: A.line, discussed transfusion and ICU Medications/Allergies Home Medications Medication Instructions Recorded Confirmed Last Taken Type allopurinol 100 mg tablet 100 mg PO DAILY 10/01/21 05/12/23 05/11/23 History aspirin 81 mg tablet,delayed 81 mg PO DAILY 10/01/21 05/11/23 05/06/23 History release (Adult Low Dose Aspirin) brexpiprazole 0.5 mg tablet 0.5 mg PO DAILY 10/01/21 05/12/23 03/19/23 History (Rexulti) citalopram 40 mg tablet 40 mg PO DAILY 10/01/21 05/12/23 05/11/23 History furosemide 40 mg tablet 40 mg PO BID 10/01/21 05/12/23 05/11/23 History gabapentin 600 mg tablet 800 mg PO DIRECTED 10/01/21 05/12/23 05/11/23 History mirtazapine 15 mg tablet 15 mg PO DAILY 10/01/21 05/12/23 05/11/23 History pantoprazole 40 mg tablet,delayed 40 mg PO BID 10/01/21 05/12/23 05/11/23 History release prazosin 2 mg capsule 2 mg PO .HS 10/01/21 05/12/23 1 Day Ago History ~05/10/23 trazodone 300 mg tablet 300 mg PO .HS 10/01/21 05/12/23 05/11/23 History albuterol sulfate 90 mcg/actuation 2 puff inhalation Q6H PRN 12/16/22 05/12/23 05/11/23 History aerosol inhaler shortness ofbreath potassium chloride 10 mEq 10 meq PO DAILY 12/16/22 05/12/23 05/11/23 History capsule,extended release amlodipine 10 mg tablet 10 mg PO DAILY #90 tabs 01/15/23 05/12/23 05/11/23 Rx spironolactone 25 mg tablet 25 mg PO BID #180 tabs 01/15/23 05/12/23 05/11/23 Rx tizanidine 4 mg tablet 4 mg PO BID PRN muscle spasticity 01/18/23 05/12/23 05/11/23 Rx #60 tabs carvedilol 25 mg tablet 50 mg PO BID #360 tabs 02/04/23 05/12/23 05/11/23 Rx [id number] Bone Growth Stimulator #1 ea 02/26/23 05/10/23 Unknown Rx levetiracetam 750 mg tablet 750 mg PO BID #60 tabs 05/10/23 05/12/23 05/11/23 Rx (Keppra) Allergies Allergy/AdvReac Type Severity Reaction Status Date / Time No Known Allergies Allergy Verified 05/11/23 09:12 Current Medications Generic Name Dose Route Start Last Admin Trade Name Freq PRN Reason Stop Dose Admin Sodium Chloride 1,000 mls @ 30 mls/hr 05/12/23 06:45 05/12/23 07:14 Sodium Chloride 0.9% IV 05/13/23 06:44 30 mls/hr .Q24H NATALYA Administration PFSH Anesthesia Medical History Anxiety Cardiac resynchronization therapy defibrillator (GRANULATING BLENDER-D) in place CHF (congestive heart failure) CKD (chronic kidney disease) COPD (chronic obstructive pulmonary disease) Depression HTN (hypertension) Immunocompromised state PTSD (post-traumatic stress disorder) Pulmonary arterial hypertension Sinus tachycardia Staph skin infection Tobacco dependence Surgical History S/P hemorrhoidectomy S/P placement of cardiac pacemaker Family History Mother Diabetes Heart disease Hypertension Father Diabetes Heart disease Social History Smoking and tobacco/nicotine status: current some day tobacco/nicotine user cigarettes Alcohol intake: current Alcohol intake frequency: holidays/special occasions only Alcohol type: hard liquor Substance/Drug Use: never Data Anesthesia 05/12/23 07:15 05/12/23 07:15 Short CBC 05/12/23 Range/Units 07:15 WBC 4.68 (3.29-11.43) 10^3/uL Hgb 13.80 (11.27-16.99) g/dL Hct 41.2 (37-53) % MCV 95.6 (82-101) fl Plt Count 235 (157-399) 10^3/cmm Neut % (Auto) 43.4 % Neut # (Auto) 2.03 (1.8-7.7) 10^3/uL BMP 05/12/23 07:15 Sodium 138 Potassium 4.5 Chloride 102 Carbon Dioxide 25 BUN 20 Creatinine 1.7 H Glucose 111 Calcium 8.9 Cardiac Studies: No Data to Display
--- NOTE | 2023-05-12 09:23 | W.PM.OPSFHP ---
Same Day Surgery H&P Indication for Procedure/HPI DATE OF PROCEDURE: May 12, 2023 CHIEF COMPLAINT/INDICATIONFOR SURGICAL PROCEDURE: Back pain PREOP DIAGNOSIS: Lumbar facet arthritis PLANNED PROCEDURE: Operation Date: 05/12/23 09:40 Proposed Procedures p Spinal Fusion PSF(Not Applicable) - Ian Matamoros DO s Posterior Lumbar Interbody Fusion PLIF(Not Applicable) - Ian Matamoros DO s Sacroiliac Joint Fusion SI Joint Fusion(Not Applicable) - Ian Matamoros DO Medications/Allergies* Home Medications Medication Instructions Recorded Confirmed Type allopurinol 100 mg tablet 100 mg PO DAILY 10/01/21 05/12/23 History aspirin 81 mg tablet,delayed 81 mg PO DAILY 10/01/21 05/11/23 History release (Adult Low Dose Aspirin) brexpiprazole 0.5 mg tablet 0.5 mg PO DAILY 10/01/21 05/12/23 History (Rexulti) citalopram 40 mg tablet 40 mg PO DAILY 10/01/21 05/12/23 History furosemide 40 mg tablet 40 mg PO BID 10/01/21 05/12/23 History gabapentin 600 mg tablet 800 mg PO DIRECTED 10/01/21 05/12/23 History mirtazapine 15 mg tablet 15 mg PO DAILY 10/01/21 05/12/23 History pantoprazole 40 mg tablet,delayed 40 mg PO BID 10/01/21 05/12/23 History release prazosin 2 mg capsule 2 mg PO .HS 10/01/21 05/12/23 History trazodone 300 mg tablet 300 mg PO .HS 10/01/21 05/12/23 History albuterol sulfate 90 mcg/actuation 2 puff inhalation Q6H PRN 12/16/22 05/12/23 History aerosol inhaler shortness ofbreath potassium chloride 10 mEq 10 meq PO DAILY 12/16/22 05/12/23 History capsule,extended release Allergies/Adverse Reactions Allergy/AdvReac Type Severity Reaction Status Date / Time No Known Allergies Allergy Verified 05/11/23 09:12 Current Medications: Generic Name Dose Route Start Last Admin Trade Name Freq PRN Reason Stop Dose Admin Sodium Chloride 1,000 mls @ 30 mls/hr 05/12/23 06:45 05/12/23 07:14 Sodium Chloride 0.9% IV 05/13/23 06:44 30 mls/hr .Q24H NATALYA Administration Pertinent History/Comorbid Conditions* Medical History (Updated 12/16/22 @ 13:14 by Kevon Rome NP) Anxiety Cardiac resynchronization therapy defibrillator ([employer]-D) in place CHF (congestive heart failure) CKD (chronic kidney disease) COPD (chronic obstructive pulmonary disease) Depression HTN (hypertension) Immunocompromised state PTSD (post-traumatic stress disorder) Pulmonary arterial hypertension Sinus tachycardia Staph skin infection Tobacco dependence Surgical History (Updated 12/16/22 @ 13:06 by Kevon Rome NP) S/P hemorrhoidectomy S/P placement of cardiac pacemaker Family History (Updated 10/01/21 @ 08:19 by Jennifer Helton RN) Diabetes Mother Father Heart disease Mother Father Hypertension Mother Social History Smoking and tobacco/nicotine status: current some day tobacco/nicotine user cigarettes Alcohol intake: current Alcohol intake frequency: holidays/special occasions only Alcohol type: hard liquor Substance/Drug Use: never Pertinent Exam Findings alert and oriented x 3 Recommendations Surgery/Procedure today Coding Level of Care Code Acute Code for Chg Fwd Diagnoses
[2023-05-12] MEDS: ceFAZolin 2,000 MG in sodium chloride 0.9% (plus) 50 ML 100 MG IV ×2 (09:55→17:15)
[2023-05-12] MEDS: heparin, porcine 1,000 unit/mL INJ 10 mL 10000 UNIT IRRIGATION (10:33)
[2023-05-12] MEDS: lidocaine-epi 2% 20 mL INJ INJECTION (10:33)
[2023-05-12] MEDS: vancomycin 1,000 MG SDV 1000 MG XX (11:41)
--- NOTE | 2023-05-12 12:40 | PM.OP ---
Operative Report Date of procedure: May 12, 2023 Pre-op diagnosis: Lumbar facet arthritis Post-op diagnosis: same Procedure done: 1. L3-S1 posterior spine fusion 2. L3- S1 posterior spine instrumentation 3. Use of computer navigation/stereotactic for spine 4. Bone marrow aspiration Surgeon: Ian Matamoros DO Central Sterile Technician: Cam Brewer Central Sterile Technician: The assistant restaurant general manager, Cam Brewer, PAC was needed for his expertise under the microscope. He was important and necessary throughout the procedure to complete in a safe and timely manner. He assisted with patient positioning prepping and draping tissue retraction suctioning of the operative field protection of the dural sac and tissue closure Estimated blood loss (mL): 400 Procedure: 1. L3-S1 posterior spine fusion 2. L3- S1 posterior spine instrumentation 3. Use of computer navigation/stereotactic for spine 4. Bone marrow aspiration Patient is brought to the operative suite.? After undergoing anesthesia, the patient had neuro monitoring attached.? Patient was then placed in the prone position on the [place] table.? All areas of impingement were well-padded.? Patient was then prepped and draped in the normal sterile fashion.? Skin incision was then made over the L3 to the sacrum.? Subperiosteal dissection was made out to the transverse processes of L3 bilaterally,?L4 bilaterally L5 bilaterally and sacral ala bilaterally.? The [employer] bone marrow aspirate kit was used to aspirate bone marrow aspirate.? This was done by using the sharp probe to open up the bone.? Aspiration was performed and then the blunt probe was then used to dissect down to through the bone tunnel.? An aspirating well drawn back a millimeter approximately 20 cc of bone marrow aspirate was used.? Admixed with the allograft and autograft bone that will be used. Next tension was brought to placing the fiducial for the computer navigation.? 2 pins were placed into the right iliac crest.? The fiducial was attached.? The C-arm was brought in and information from the C arm was then linked to the computer used for placing the screws.? Next attention was brought to placing the pedicle screws.? This was done by using the gearshift probe.? The probe was used to identify the pedicle.? Then the pedicle feeler was used followed by placement of screw.? This was done at?L3 bilaterally, L4 bilaterally, L5 bilaterally and S1 bilaterally. Attention was then brought to attaching the rods to the screws placed in the L4 bilaterally L5 bilaterally and S1 bilaterally.?? Caps were torqued into position. Locking the construct in place. Wound was copiously irrigated and then attention was brought to decorticating the facets and transverse processes laterally.? ? This was done bilaterally. Ostial amp bone graft was then packed into the lateral gutters. Wound was then closed in a layered fashion starting with the thoracolumbar fascia.? 0-vicryl was used the sub cutaneous tissue was closed with 2-0 vicryl and skin with 4-0 monocryl.? Glue was then used to seal the skin and a steril dressing was applied.? Patient was then placed in the supine position. The endotracheal tube was removed and patient was transferred to the PACU in stable condition.
[2023-05-12] MEDS: midazolam 1 mg/mL INJ 2 mL 2 MG IVP (12:48)
--- NOTE | 2023-05-12 13:01 | PC.NURSE ---
1241 - FLOWER Bhardwaj remains at pts side with PACU staff - pt irritated - unable to monitor pts blood pressure due to pt continuously - trying to get out of bed - orders rec'd from FLOWER - 1302 - pt currently resting with eyes closed - vss
--- NOTE | 2023-05-12 13:15 | PC.NURSE ---
1309 -arterial line removed from right wrist - pressure held - with pressure dressing applied
[2023-05-12] MEDS: labetalol 5 mg/mL SDV 20mL IVP (13:30)
--- NOTE | 2023-05-12 13:33 | PC.NURSE ---
1328 - Lashae CRENSHAW notified of pts blood pressure - orders rec'd
--- NOTE | 2023-05-12 13:41 | PC.NURSE ---
7985 - report given to WES Kim pre-op - pt denies back pain - continues to state please don't let me urinate on myself - lester previously removed - urinal placed between pts legs - reeducated to pt that urinal is in place and pt is free to void - last pacu bp was sbp of 141 - per FLOWER Bhardwaj order - ok to move to pre op when sbp less than 160 - hemovac remains in place - pt remains on room air with sats 94-97% - notified Judy of removal of lester, removal of art line, urinal placed, labetol given IVP
--- NOTE | 2023-05-12 14:05 | PC.PHAR ---
GABAPENTIN CLARIFICATION - called [facility] 05/12/2023 1400, to verify dose reconciled as 600 mg tablet dose 800 as directed with note 3 tid and 2hs. verified last fill 04/16/2023 = gabapentin 600 mg 1 tid + 2 hs. edited continued home med to reflect clarification.
[2023-05-12] MEDS: lactated ringers 1,000 ML 90 ML IV (15:23)
[2023-05-12] MEDS: HYDROcodone-acetaminophen 5-325 mg Tablet PO (15:23)
[2023-05-12] MEDS: gabapentin 300 mg Capsule 600 MG PO (17:03)
[2023-05-12] MEDS: morphine 4 mg/mL SDV 1 mL 2 MG IVP ×2 (17:04→22:00)
[2023-05-12] MEDS: ketorolac 30 mg/mL INJ IVP (17:04)
[2023-05-12] MEDS: tizanidine 4 mg Tablet PO (17:04)
[2023-05-12] MEDS: FUROsemide 40 mg Tablet PO (17:14)
[2023-05-12] MEDS: pantoprazole DR 40 mg Tablet PO (17:14)
[2023-05-12] MEDS: docusate sodium 100 mg Capsule PO (17:14)
[2023-05-12] MEDS: carvedilol 25 mg Tablet 50 MG PO (17:14)
[2023-05-12] MEDS: levETIRAcetam 500 mg Tablet 750 MG PO (17:15)
[2023-05-12] MEDS: spironolactone 25 mg Tablet PO (17:15)
--- NOTE | 2023-05-12 17:45 | ANE.PACU2 ---
Inpatient post-anesthesia follow up: Airway intact: Yes Vital signs: Temperature 97.6 F Pulse Rate 80 Respiratory Rate 17 Blood Pressure 153/110 Pulse Oximetry 95 Oxygen Delivery Me thod Room Air Oxygen Flow Rate 6 Fraction of Inspir ed Oxygen Hydration adequate: Yes Nausea and vomiting: No Pain level: 4 Mental status: Baseline
[2023-05-12] MEDS: trazodone 150 mg Tablet 300 MG PO (20:45)
[2023-05-12] MEDS: prazosin 1 mg Capsule 2 MG PO (20:45)
[2023-05-12] MEDS: gabapentin 300 mg Capsule 1200 MG PO (20:46)
[2023-05-12] MEDS: mirtazapine 15 mg Tablet PO (23:07)
[2023-05-13] VITALS (10 sets, daily range): BP systolic 115–150; BP diastolic 76–102; PULSE 73–106; RESP 16–18; TEMP 36.3–37.7; O2SAT 94–98
[2023-05-13] MEDS: morphine 4 mg/mL SDV 1 mL 2 MG IVP ×2 (00:39→06:01)
--- NOTE | 2023-05-13 00:50 | PC.NURSE ---
Bleeding from surgical incision soiled dressing and leaked out from bottom of dressing. Hemovac intact and suctioning; marked soiled area on dressing and reinforced dressing with 4x4 gauze and micropore tape.
[2023-05-13] MEDS: HYDROcodone-acetaminophen 5-325 mg Tablet PO ×4 (02:16→17:34)
[2023-05-13] MEDS: lactated ringers 1,000 ML 90 ML IV (02:17)
[2023-05-13] MEDS: ceFAZolin 2,000 MG in sodium chloride 0.9% (plus) 50 ML 100 MG IV ×2 (02:17→08:42)
--- NOTE | 2023-05-13 07:49 | PM.PN ---
Subjective Subjective: POD 1 Patient resting but complaining of spasms and back pain. States that he is having a lot of anxiety as well. Denies chest pain, shortness of breath or headaches. Vitals/I&O/Wt Last Vital Signs Temp 98.1 F 05/13/23 07:37 Pulse 97 05/13/23 07:37 Resp 17 05/13/23 07:37 BP 143/83 05/13/23 07:37 Pulse Ox 97 05/13/23 07:37 O2 Del Method Room Air 05/13/23 07:37 O2 Flow Rate 6 05/12/23 12:39 05/12/23 05/13/23 05/13/23 22:59 06:59 14:59 Intake Total 1010 / 2110 2831 / 4941 Output Total 575 / 1400 925 / 2325 Balance 435 / 710 1906 / 2616 Weight last 48 hrs Weight 240 lb Physical Exam Narrative: Patient presents alert and oriented x3 with a good general appearance normal mood and affect. Normal coordination normal stability. Mild tenderness around the incisional site with the incision appear to be clean and dry with Hemovac drain intact. No signs of erythema or drainage. No signs of infection. Patient denies any fevers or chills. 5/5 motor strength both lower extremities with negative straight leg raise bilaterally. Calves are supple no medial thigh tenderness. Pulses are 2+ at the dorsalis pedis and posterior tibial region. Good capillary refill throughout normal sensation light touch both lower extremities. Urinary Catheter Management: Aguiar: Cath Placed During This Visit: yes, but has since been removed by the nurse Urinary Catheter Date of Insertion: 05/12/23 Urinary Catheter Time of Insertion: 10:15 Date Urinary Catheter Removed: 05/12/23 Time Urinary Catheter Discontinued: 13:30 Data 05/12/23 07:15 05/12/23 07:15 A&P Assessment and plan (1) Status post lumbar spinal fusion: We will switch him to Valium from the tizanidine. Continue the Hemovac drain today. We will have physical therapy to mobilize. Try and gain better pain control and discharge home tomorrow. Continue incentive spirometry for pulmonary toilet. Attestations Medical Necessity Statement*: Attempt to gain better pain control today hopeful discharge home tomorrow Coding Level of Care Code Acute Code for Chg Fwd Diagnoses Status post lumbar spinal fusion Z98.1
[2023-05-13] MEDS: FUROsemide 40 mg Tablet PO ×2 (08:40→17:33)
[2023-05-13] MEDS: allopurinol 100 mg Tablet PO (08:40)
[2023-05-13] MEDS: docusate sodium 100 mg Capsule PO ×2 (08:40→17:33)
[2023-05-13] MEDS: amlodipine 10 mg Tablet PO (08:40)
[2023-05-13] MEDS: gabapentin 300 mg Capsule 600 MG PO ×3 (08:40→17:34)
[2023-05-13] MEDS: spironolactone 25 mg Tablet PO ×2 (08:40→17:33)
[2023-05-13] MEDS: pantoprazole DR 40 mg Tablet PO ×2 (08:40→17:34)
[2023-05-13] MEDS: aspirin 81 mg EC Tablet PO (08:41)
[2023-05-13] MEDS: citalopram 20 mg Tablet 40 MG PO (08:41)
[2023-05-13] MEDS: potassium chloride ER 10 mEq Tablet PO (08:41)
[2023-05-13] MEDS: levETIRAcetam 500 mg Tablet 750 MG PO ×2 (08:41→17:34)
[2023-05-13] MEDS: carvedilol 25 mg Tablet 50 MG PO ×2 (08:42→17:34)
--- NOTE | 2023-05-13 10:51 | PC.CHAP ---
Pastoral Care Encounter/Spiritual Assessment Type of Contact [] Declined hematologist visit [] Patient/Family/Request visit [] Outpatient visit [] Follow-up visit [] Physician referral [] Code/Alert [x] Routine visit [] Staff referral [] Actively dying [] Patient sleeping [] Family support [] [] Out of room [] Palliative care [] [x] Receiving care in room [] Pre-surgical visit [] Trauma [] Long length of stay [] ICU visit [] Other: Relational/Emotional Strength [x] Patient feels connected with others/family/visitors/staff [] Distress [] Loneliness/isolation [] Abandonment Spirituality of Patient [x] Person of Joann [] Attends Jewish of their Joann [x] Believes in Prayer [] Reads Bible or Uatsdin materials [] There are Spiritual issues to be addressed 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 Interventions [x] Prayer [x] Active listening [x] Non-anxious presence [x] Spiritual/emotional support [] Crisis/trauma care [x] Spiritual counseling [] Bereavement support [] Provided bereavement packet [] Provided Bible/devotional materials [] Provided toy/stuffed animal, coloring book to patient or family member [] Provided Communion [] Anointing/[place] [] Salvation [x] Completed spiritual assessment [] Other: Impact on Illness or Injury [] Angry [] Fearful [] Anxious [] Often cries [] Exhaustion [] Unable to work [] Unable to attend restorationism [] Unable to walk/stand [] Unable to read [] Unable to drive [] Unable to eat/drink [] Unable to sleep [] Unable to be with family [] Patient intubated [] Other: Summary proceeduer on back has zero movement well have rehab at home has a postive attitude Time spent with patient 10 mins
[2023-05-13] MEDS: prazosin 1 mg Capsule 2 MG PO (20:31)
[2023-05-13] MEDS: mirtazapine 15 mg Tablet PO (20:31)
[2023-05-13] MEDS: trazodone 150 mg Tablet 300 MG PO (20:31)
[2023-05-13] MEDS: diazePAM 5 mg Tablet PO (20:31)
[2023-05-13] MEDS: gabapentin 300 mg Capsule 1200 MG PO (20:31)
[2023-05-14] VITALS (8 sets, daily range): BP systolic 108–133; BP diastolic 61–84; PULSE 77–118; RESP 15–17; TEMP 36.7–38.1; O2SAT 95–98
[2023-05-14] MEDS: lactated ringers 1,000 ML 90 ML IV (00:38)
[2023-05-14] MEDS: morphine 4 mg/mL SDV 1 mL 2 MG IVP (02:31)
[2023-05-14] MEDS: diazePAM 5 mg Tablet PO (04:32)
--- NOTE | 2023-05-14 06:43 | PM.PN ---
Subjective Subjective: POD 2 Patient resting comfortably. Ready for discharge home. Vitals/I&O/Wt Last Vital Signs Temp 100.6 F H 05/14/23 03:51 Pulse 113 H 05/14/23 03:51 Resp 15 05/14/23 03:51 BP 133/84 05/14/23 03:51 Pulse Ox 96 05/14/23 03:51 O2 Del Method Room Air 05/14/23 03:51 O2 Flow Rate 6 05/12/23 12:39 05/13/23 05/13/23 05/14/23 14:59 22:59 06:59 Intake Total 1890 / 1890 Output Total 1300 / 1300 860 / 2160 Balance 1890 / 1890 -1300 / 590 -860 / -270 Weight last 48 hrs Weight 240 lb Physical Exam Narrative: Patient presents alert and oriented x3 with a good general appearance normal mood and affect. Normal coordination normal stability. Mild tenderness around the incisional site with the incision appear to be healing nicely. No signs of erythema or drainage. No signs of infection. Patient denies any fevers or chills. 5/5 motor strength both lower extremities with negative straight leg raise bilaterally. Calves are supple no medial thigh tenderness. Pulses are 2+ at the dorsalis pedis and posterior tibial region. Good capillary refill throughout normal sensation light touch both lower extremities. Urinary Catheter Management: Aguiar: Cath Placed During This Visit: yes, but has since been removed by the nurse Urinary Catheter Date of Insertion: 05/12/23 Urinary Catheter Time of Insertion: 10:15 Date Urinary Catheter Removed: 05/12/23 Time Urinary Catheter Discontinued: 13:30 Data 05/12/23 07:15 05/12/23 07:15 A&P Assessment and plan (1) Status post lumbar spinal fusion: Physical therapy to mobilize. We will discontinue Hemovac drain. Change dressing with Silverlon. Encourage incentive spirometry at home. We will see him back in the office with Dr. Matamoros in 1 week's time. Attestations Medical Necessity Statement*: Discharge home later today after the Hemovac drain is discontinued to follow-up with Dr. Matamoros in 1 week. Coding Level of Care Code Acute Code for Chg Fwd Diagnoses Status post lumbar spinal fusion Z98.1
[2023-05-14] MEDS: HYDROcodone-acetaminophen 5-325 mg Tablet PO ×3 (10:35→21:28)
[2023-05-14] MEDS: pantoprazole DR 40 mg Tablet PO ×2 (10:41→18:31)
[2023-05-14] MEDS: allopurinol 100 mg Tablet PO (10:41)
[2023-05-14] MEDS: spironolactone 25 mg Tablet PO ×2 (10:42→18:30)
[2023-05-14] MEDS: levETIRAcetam 500 mg Tablet 750 MG PO ×2 (10:42→18:29)
[2023-05-14] MEDS: amlodipine 10 mg Tablet PO (10:42)
[2023-05-14] MEDS: aspirin 81 mg EC Tablet PO (10:43)
[2023-05-14] MEDS: citalopram 20 mg Tablet 40 MG PO (10:43)
[2023-05-14] MEDS: carvedilol 25 mg Tablet 50 MG PO ×2 (10:43→18:30)
[2023-05-14] MEDS: gabapentin 300 mg Capsule 600 MG PO ×3 (10:44→18:31)
[2023-05-14] MEDS: docusate sodium 100 mg Capsule PO ×2 (10:44→18:30)
[2023-05-14] MEDS: potassium chloride ER 10 mEq Tablet PO (10:45)
[2023-05-14] MEDS: FUROsemide 40 mg Tablet PO ×2 (10:46→18:31)
[2023-05-14] MEDS: ketorolac 30 mg/mL INJ IVP (12:38)
[2023-05-14] MEDS: prazosin 1 mg Capsule 2 MG PO (21:27)
[2023-05-14] MEDS: mirtazapine 15 mg Tablet PO (21:27)
[2023-05-14] MEDS: gabapentin 300 mg Capsule 1200 MG PO (21:27)
[2023-05-14] MEDS: tizanidine 4 mg Tablet PO (21:27)
[2023-05-14] MEDS: trazodone 150 mg Tablet 300 MG PO (21:28)
[2023-05-15 04:00] VITALS: BP 100/68; PULSE 98; RESP 17; TEMP 37.4; O2SAT 96
[2023-05-15 07:40] VITALS: BP 122/74; PULSE 100; RESP 16; O2SAT 95
--- NOTE | 2023-05-15 09:16 | P.DS_ITS ---
Discharge Providers Date of Admission: 05/12/23 14:20 Date of Discharge: May 15, 2023 Attending Provider at Admission: Ian Matamoros DO Attending Provider at Discharge: Ian Matamoros DO Primary Care Provider: Arlet Hernandez NP Diagnoses at Discharge Discharge Diagnosis (1) Status post lumbar spinal fusion: Status: Acute Physical Exam Narrative: Patient doing well pain controlled Urinary Catheter Management: Aguiar: Cath Placed During This Visit: yes, but has since been removed by the nurse Urinary Catheter Date of Insertion: 05/12/23 Urinary Catheter Time of Insertion: 10:15 Date Urinary Catheter Removed: 05/12/23 Time Urinary Catheter Discontinued: 13:30 Discharge Data Studies Completed and Pending Completed Studies During Hospitalization Category Date Time Status XR lumbar spine 2-3V* 09570 Routine Exams 05/12/23 Completed Pending at discharge Category Date Time Status C-arm Fluoroscopy 28922 Routine Exams 05/12/23 06:41 Taken Laboratory Results WBC 4.68 10^3/uL (3.29-11.43) 05/12/23 07:15 RBC 4.31 10^6/uL (3.85-5.65) 05/12/23 07:15 Hgb 13.80 g/dL (11.27-16.99) 05/12/23 07:15 Hct 41.2 % (37-53) 05/12/23 07:15 MCV 95.6 fl (82-101) 05/12/23 07:15 MCH 32.0 pg (27-33) 05/12/23 07:15 MCHC 33.5 g/dL (30-55) 05/12/23 07:15 RDW 14.1 % (12.1-15.1) 05/12/23 07:15 Plt Count 235 10^3/cmm (157-399) 05/12/23 07:15 MPV 11.7 fL (7.4-10.4) H 05/12/23 07:15 Neut % (Auto) 43.4 % 05/12/23 07:15 Lymph % (Auto) 42.3 % 05/12/23 07:15 Atkinson % (Auto) 8.5 % 05/12/23 07:15 Eos % (Auto) 4.3 % 05/12/23 07:15 Baso % (Auto) 1.1 % 05/12/23 07:15 Neut # (Auto) 2.03 10^3/uL (1.8-7.7) 05/12/23 07:15 Lymph # (Auto) 2.0 10^3/uL (0.8-4.8) 05/12/23 07:15 Atkinson # (Auto) 0.4 10^3/uL (0.2-0.9) 05/12/23 07:15 Eos # (Auto) 0.2 10^3/uL (0.0-0.8) 05/12/23 07:15 Baso # (Auto) 0.1 10^3/uL (0.0-0.1) 05/12/23 07:15 Nucleated RBC % (auto) 0 % 05/12/23 07:15 Nucleated RBCs # 0.0 /100WBC 05/12/23 07:15 Sodium 138 mmol/L (136-145) 05/12/23 07:15 Potassium 4.5 mmol/L (3.5-5.1) 05/12/23 07:15 Chloride 102 mmol/L (98-107) 05/12/23 07:15 Carbon Dioxide 25 mmol/L (22-29) 05/12/23 07:15 Anion Gap 15.5 (5-19) 05/12/23 07:15 BUN 20 mg/dL (6-20) 05/12/23 07:15 Creatinine 1.7 mg/dL (0.7-1.2) H 05/12/23 07:15 GFR Calculation 52.8 mL/min (90-130) L 05/12/23 07:15 Glucose 111 mg/dL (65-115) 05/12/23 07:15 Calculated Osmolality 289 mOsm/kg (285-295) 05/12/23 07:15 Calcium 8.9 mg/dL (8.5-10.5) 05/12/23 07:15 Blood Type O Positive 05/12/23 07:15 Rho(D) Type Rh positive 05/12/23 07:15 Antibody Screen Negative 05/12/23 07:15 Vitals Last Vital Signs Temp 99.3 F 05/15/23 04:00 Pulse 100 05/15/23 07:40 Resp 16 05/15/23 07:40 BP 122/74 05/15/23 07:40 Pulse Ox 95 05/15/23 07:40 O2 Del Method Room Air 05/15/23 07:40 O2 Flow Rate 6 05/12/23 12:39 Discharge Plan Discharge Patient Disposition: Home Condition: Stable Prescriptions: New hydrocodone-acetaminophen 5-325 mg Tablet 1 - 2 tab PO Q4H PRN (Reason: Postoperative pain) Qty: 40 0RF diazepam 5 mg Tablet 5 mg PO Q8H PRN (Reason: Anxiety/spasms) Qty: 30 0RF Continued Rexulti 0.5 mg tablet 0.5 mg PO QAM mirtazapine 15 mg tablet 15 mg PO DAILY prazosin 2 mg capsule 2 mg PO BEDTIME allopurinol 100 mg tablet 100 mg PO QPM pantoprazole 40 mg tablet,delayed release (DR/EC) 40 mg PO BID citalopram 40 mg tablet 40 mg PO QAM furosemide 40 mg tablet 40 mg PO BID trazodone 300 mg tablet 300 mg PO BEDTIME aspirin [Adult Low Dose Aspirin] 81 mg tablet,delayed release (DR/EC) 81 mg PO QAM potassium chloride 10 mEq capsule, extended release 10 meq PO DAILY albuterol sulfate 90 mcg/actuation HFA aerosol inhaler 2 puff inhalation Q6H PRN (Reason: shortness ofbreath) amlodipine 10 mg tablet 10 mg PO DAILY Qty: 90 5RF spironolactone 25 mg tablet 25 mg PO BID Qty: 180 6RF levetiracetam [Keppra] 750 mg tablet 750 mg PO BID Qty: 60 3RF carvedilol 25 mg tablet 50 mg PO BID Qty: 360 1RF (DME) E0748 Bone Growth Stimulator See Rx Instructions .Route .MEDSUPPLY Qty: 1 0RF Rx Instructions: As directed gabapentin 800 mg Tablet 800 mg PO TID Discontinued tizanidine 4 mg tablet 4 mg PO BID PRN (Reason: muscle spasticity) Qty: 60 4RF Discharge Orders: Discharge Order (Routine); Ordered 05/15/23 Ordered By: Ian Matamoros Other Ambulatory Orders: DME: Tung (Order) Location: None Selected Ordered By: Ian Matamoros Referrals: Ian Matamoros DO [Physician] - 05/20/23 11:00 am () Arlet Hernandez NP [Primary Care Provider] - 05/21/23 9:00 am (Appointment with Deborah Quijano.) Discharge Diet: Advance as tolerated Discharge Activity: Limit activity as instructed Patient Instructions: Hydrocodone/Acetaminophen (By mouth) (Vicodin, Imperial, Lortab), Diazepam (By mouth), Lumbar Spinal Fusion (DC), Opioid Safety Activity Restrictions/Additional Instructions: Thank you for choosing [facility] for your care! The following is a list of instructions, from your provider, to follow upon your discharge to ensure you have the optimal recovery from your recent injury or surgery. Follow-up care is a malone part of your treatment and safety. Be sure to make and go to all appointments and call your doctor if you are having problems. If you do not already have a follow-up appointment made, call Dr. Matamoros's] office in the next 1-3 days to make follow up appointment for [1] weeks with Dr. Matamoros at [phone]. It is also a good idea to know your test results and keep a list of the medicines you take. Medications will be prescribed for you at your provider's discretion. These medications are to be used as instructed; if they are taken more often that prescribed they will not be refilled early and in most cases will not be refilled at all. > When a refill is needed, you should contact ivette bradshaw 2-3 business days before your prescription runs out. Medications will NOT be refilled by civil engineering design draftsperson providers after hours! > Many pain medications contain Tylenol (Acetaminophen). Do not consume more than 4,000 mg of Tylenol per day in total with any combination of medications. > Pain medications can cause constipation. Please use an over the counter stool softener as directed, while taking pain medications. Consult your local pharmacist with questions or recommendations on stool softeners. If constipation persists, contact our office or your primary care provider. > While under our care, you are not to receive pain medications or o ther controlled substances from any other provider unless our office is notified and approves. Any attempts to do so will result in refusal to prescribe any further pain medications and possible dismissal from our practice. ? Walking is essential for the healing process after surgery. We would like you to slowly advance your walking. This should be done on relatively flat clear ground (inside or out) or can be done on a treadmill. Remember this goal does not have to happen all at once, slowly increase your distance and duration. This can be broken into more more than one walk per day as tolerated. Patients who walk as directed after surgery rarely require Physical Therapy. In the unlikely event this issue arises your provider will direct hospital staff to make the appropriate arrangements. ? No lifting over 5 pounds {a gallon of milk) or bending/twisting until further notice. Each of these activities places an unnecessary amount of stress onto the body and can impede the delicate healing process. > Instead of bending at the waist, keep your back straight and bend at the knees. > Instead of twisting your torso, keep your back straight and turn your entire body with your feet. ? You may sleep in any position which makes you comfortable. Many patients find comfort sleeping in a reclining chair. It is not abnormal to have difficulty sleeping for the first several weeks following your surgery. We recommend trying Benadry! or Tylenol PM as directed to help with your sleeping difficulties. Both medications are over the counter and available without prescription. ? NO SMOKING!!! Smoking dramatically increases the probability of developing postoperative wound infections. ? Common complaints after lumbar and/or thoracic spine surgery include, but are not limited to: numbness and/or tingling in the legs, pain around the incision and surrounding tissues, muscle spasms, or stiffness of the middle to low back. Contact our office if these symptoms persist or if an acute change occurs. ? No driving for the first 3-5days, and not while taking narcotics until seen at your follow-up appointment and cleared. There are no restrictions for riding on short trips, however if you take a longer trip, arrangements should be made to make regular stops to get out of the vehicle and stretch . ? Swelling is an unfortunate event that will take place with any surgery and is the primary source of your postoperative discomfort. While walking and regular approved activities helps control inflammation, there are additional steps you can take to minimize swelling. > Place ice over the surgical site and surrounding tissue for twenty minutes, followed by applying a low/medium heat (heating pad) for an additional twenty minutes every 1-2 hours as needed for painrelief. > You may use of over the counter anti-inflammatory medications (Ibuprofen, Motrin, Aleve, Advil, etc) as directed on the package label. These types of medicines will significantly reduce the amount of discomfort you experience after surgery from swelling. It should be noted that if you have and allergy to any of these medications, or a history of ulcers or kidney disease you should consult you primary care provider prior to starting these medications. Discharge Attestations Time Spent in Discharge Care*: less than 30 min Quality Metrics Clinical Quality Measures [ No reported AMI, CVA or VTE this stay] Coding Level of Care Code Acute Code for Chg Fwd Diagnoses Status post lumbar spinal fusion Z98.1
[2023-05-15] MEDS: citalopram 20 mg Tablet 40 MG PO (09:52)
[2023-05-15] MEDS: potassium chloride ER 10 mEq Tablet PO (09:52)
[2023-05-15] MEDS: carvedilol 25 mg Tablet 50 MG PO (09:52)
[2023-05-15] MEDS: pantoprazole DR 40 mg Tablet PO (09:52)
[2023-05-15] MEDS: aspirin 81 mg EC Tablet PO (09:52)
[2023-05-15] MEDS: spironolactone 25 mg Tablet PO (09:52)
[2023-05-15] MEDS: levETIRAcetam 500 mg Tablet 750 MG PO (09:52)
[2023-05-15] MEDS: allopurinol 100 mg Tablet PO (09:52)
[2023-05-15] MEDS: docusate sodium 100 mg Capsule PO (09:52)
[2023-05-15] MEDS: amlodipine 10 mg Tablet PO (09:53)
[2023-05-15] MEDS: FUROsemide 40 mg Tablet PO (09:53)
[2023-05-15] MEDS: gabapentin 300 mg Capsule 600 MG PO ×2 (09:58→15:06)
[2023-05-15] MEDS: HYDROcodone-acetaminophen 5-325 mg Tablet PO ×2 (09:58→15:06)
[2023-05-15 11:10] VITALS: BP 115/68; PULSE 108; RESP 17; TEMP 37.4; O2SAT 95
--- NOTE | 2023-05-15 13:16 | PC.NURSE ---
Medicaid called and transport set up. Car tender needing approval with Medicaid slot supervisor confirmation #[id number] spoke with
--- NOTE | 2023-05-15 13:30 | PC.NURSE ---
patient verbalized understanding of discharge instructions, home medication, and follow up appointments. patient verbalized understanding of need for smoking cessation, however pt has asked this RN if he can wait outside so he an smoke a cigarette.
--- NOTE | 2023-05-15 15:11 | PC.NURSE ---
Called for an update on ride from Medicaid Spoke with Myrna and stated the patient will be picked up within the next 30 minutes.
[2023-05-15 16:15] VITALS: BP 115/68; PULSE 108; RESP 17; TEMP 37.4; O2SAT 95
== END 2023-05-15 16:15 | disposition home or self-care (01) | DRG 460 ==
LOC: MEDSURG 14:38
PROVIDERS: Anesthesiology; Admitting Provider Orthopaedic Surgery; PCP Nurse Practitioner Family; Visit Provider Orthopaedic Surgery
PROC: 0SG107J Fusion of 2 or more Lumbar Vertebral Joints with Autologous Tissue Substitute, Posterior Approach, Anterior Column, Open Approach (ICD-10-PCS; principal; 2023-05-12 09:30)
PROC: 0SG107J Fusion of 2 or more Lumbar Vertebral Joints with Autologous Tissue Substitute, Posterior Approach, Anterior Column, Open Approach (ICD-10-PCS; CPT 22612; 2023-05-12 09:30)
PROC: 0SG107J Fusion of 2 or more Lumbar Vertebral Joints with Autologous Tissue Substitute, Posterior Approach, Anterior Column, Open Approach (ICD-10-PCS; CPT 27280; 2023-05-12 09:30)
DX: M47.816 Spondylosis without myelopathy or radiculopathy, lumbar region (principal); I13.0 Hypertensive heart and chronic kidney disease with heart failure and stage 1 through stage 4 chronic kidney disease, or unspecified chronic kidney disease; I50.20 Unspecified systolic (congestive) heart failure; D84.9 Immunodeficiency, unspecified; J44.9 Chronic obstructive pulmonary disease, unspecified; N18.9 Chronic kidney disease, unspecified; Z95.810 Presence of automatic (implantable) cardiac defibrillator; F41.9 Anxiety disorder, unspecified; F32.A Depression, unspecified; F43.10 Post-traumatic stress disorder, unspecified; I27.20 Pulmonary hypertension, unspecified; F17.210 Nicotine dependence, cigarettes, uncomplicated; Z79.82 Long term (current) use of aspirin; Z79.891 Long term (current) use of opiate analgesic
CPT/HCPCS: 36415; 51702; 72100; 76000; 80048; 85025; 86850; 86900; 94640; 97116; 97161; 97530; C1713; J0690; J1100; J1170; J1644; J1885; J2250; J2270; J2371; J2405; J2704; J3010; J3370; J3490; J7030; J7120

== ENCOUNTER → 2023-05-20 11:02 | Outpatient (BNVA) | payer MEDICAID, SELFPAY | PROVIDERS: PCP Nurse Practitioner Family; Visit Provider Orthopaedic Surgery | DX: Z98.1 Arthrodesis status; Z47.89 Encounter for other orthopedic aftercare | CPT/HCPCS: 99024 ==

== ENCOUNTER 2023-06-04 08:39 | Observation (INO) | payer MEDICAID, SELFPAY ==
[2023-06-04] VITALS (11 sets, daily range): BP systolic 125–158; BP diastolic 80–106; PULSE 84–96; RESP 13–24; TEMP 36.4–36.7; O2SAT 96–100; BMI 29.9
[2023-06-04] MEDS: ondansetron 2 mg/ML SDV 2 mL 4 MG IVP (08:59)
[2023-06-04] MEDS: dexamethasone 10 mg/mL INJ IV (08:59)
[2023-06-04] MEDS: morphine 4 mg/mL SDV 1 mL IVP ×2 (09:00→10:41)
[2023-06-04] MEDS: ketorolac 30 mg/mL INJ IVP (09:00)
--- NOTE | 2023-06-04 09:11 | CT_ITS ---
WS: [id number] CT LUMBAR SPINE TECHNIQUE: Noncontrast CT of the lumbar spine with coronal and sagittal reformatted images. CLINICAL INFORMATION: pain, R leg weakness COMPARISON: None. DLP: 982.[address] scans at [facility] use at least one of these dose optimization techniques: automated e xposure control; mA and/or kV adjustment per patient size (includes targeted exams where dose is matc hed to clinical indication); or iterative reconstruction. FINDINGS: Some images significantly graded by beam hardening artifact from hardware. Pedicle screw fixation L3- S1 with interconnecting rods appears intact and in good position. Spinal canal appears patent on the sagittal imaging. Normal postoperative changes in the dorsal subcutaneous soft tissues. No drainable abscess or fluid collection. L1-L2: Normal. L2-L3: Mild facet arthropathy. Mild narrowing of the subarticular recess. Foramen are patent. L3-L4: Minimal annular bulging. Moderate facet arthropathy. Mild RIGHT and no significant LEFT forami nal narrowing. Spinal canal is patent. L4-L5: Spinal canal difficult to visualize at this level due to beam hardening artifact. Mild RIGHT f oraminal narrowing. Moderate facet arthropathy. L5-S1: Shallow RIGHT paracentral protrusion slightly contacts the traversing RIGHT S1 nerve root in t he subarticular recess. Recommend correlation for RIGHT S1 nerve root symptoms. Spinal canal and fora men are patent. Moderate facet arthropathy. Visualized pelvic bony structures: Normal. Paravertebral soft tissues: Normal. IMPRESSION: Images degraded by beam hardening artifact from hardware 1. Pedicle screw fixation L3-S1 is new from the prior myelogram 05/21/2022 2. Spinal canal appears patent where visualized. 3. Shallow RIGHT paracentral protrusion L5-S1 slightly contacts the RIGHT S1 nerve root. 4. No other acute findings
--- NOTE | 2023-06-04 09:14 | ED_ITS ---
HPI - Back Pain/Injury 2 General: Chief Complaint: Back Pain/Injury Stated Complaint: pain/unable to walk,previous lumbar surgery Time Seen by Provider: 06/04/23 08:48 Source: patient Mode of arrival: ambulatory History of Present Illness: 47-year-old male presents emergency room complaining of lower back pain. On May 12 patient had a lumbar spine surgery. He does not recall anything he did that seem to injure it recently but he woke up today and he feels like he cannot walk. Patient has a history of cardiomyopathy has an implantable ICD also has chronic kidney disease he was supposed to see a auto engine mechanic today. He has weakness in his right leg and slightly decreased sensation no fecal incontinence or urinary retention. MD elicited complaint: back pain Pertinent past history: prior back pain and back surgery Location: lumbar spine Exacerbating factors: none Relieving factors: none Associated symptoms: Reports no associated symptoms and other; Deny abdominal pain, arthralgias, chills, change in bowel habits, difficulty walking, dysuria, fatigue, fecal incontinence, fever(s), hematuria, myalgias, nausea, numbness, syncope, tingling/numbness/burning, urinary frequency, urinary urgency, vomiting or weakness Review of Systems 2 Const: Denies: fever(s), chills or fatigue Card: Denies: syncope Resp: Denies: dyspnea GI: Denies: abdominal pain, nausea, vomiting, fecal incontinence or change in bowel habits : Denies: dysuria, urinary urgency or hematuria Musc: Denies: neck pain or back pain Skin/Breast: Denies: rash Neuro: Denies: difficulty walking PFSH ED 2 PFSH: Medical History Tobacco dependence COPD (chronic obstructive pulmonary disease) Pulmonary arterial hypertension Immunocompromised state Staph skin infection Cardiac resynchronization therapy defibrillator (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) in 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 PTSD (post-traumatic stress disorder) CKD (chronic kidney disease) CHF (congestive heart failure) HTN (hypertension) Anxiety Depression Sinus tachycardia Surgical History S/P placement of cardiac pacemaker S/P hemorrhoidectomy Family History Mother Diabetes Heart disease Hypertension Father Diabetes Heart disease Social History Smoking and tobacco/nicotine status: current some day tobacco/nicotine user cigarettes Alcohol intake: current Alcohol intake frequency: holidays/special occasions only Alcohol type: hard liquor Substance/Drug Use: never Physical Exam 2 Const: COMMON NORMALS: no acute distress GENERAL APPEARANCE: cooperative and comfortable ORIENTATION/CONSCIOUSNESS: Yes awake, Yes oriented to person, Yes oriented to place and Yes oriented to time HENMT: COMMON NORMALS: normocephalic, atraumatic and hearing grossly normal bilaterally HEAD & SCALP: normocephalic and atraumatic Resp: COMMON NORMALS: normal respiratory effort, No retractions, No use of accessory muscles and clear to auscultation bilaterally AUSCULTATION: clear to auscultation bilaterally Cardio: COMMON NORMALS: regular rate, regular rhythm and No murmurs present (Cardio) RATE: regular rate RHYTHM: regular rhythm GI: COMMON NORMALS: Soft to palpation and No hepatosplenomegaly present A USCULTATION: Yes normoactive bowel sounds PALPATION: Yes Soft to palpation, No Tenderness to palpation present (GI), No Guarding due to palpation present (GI) and Yes No hepatosplenomegaly present Extremity: COMMON NORMALS: normal to inspection, capillary refill normal, no clubbing, cyanosis or edema, no calf tenderness and no pedal edema Neuro: SENSORIUM/ORIENTATION: Yes oriented to person, Yes oriented to place and Yes oriented to time Skin: COMMON NORMALS: no rashes or lesions noted GENERAL SKIN EXAM: no rashes or lesions noted Course 2 Vital Signs: Vital signs: Vital Signs Temperature 97.5 F L 06/07/23 16:12 Pulse Rate 78 06/07/23 16:12 Respiratory Rate 18 06/07/23 16:12 Blood Pressure 134/84 06/07/23 16:12 Pulse Oximetry 96 06/07/23 16:12 Oxygen Delivery Me thod Room Air 06/07/23 12:00 MDM - Back Pain/Injury Medical Decision Making Postop L3-S1 spinal fusion unable to ambulate today because of pain initially postoperatively was able to walk. Were not able to get him up and moving. Tried several medications in the emergency room not able to control his pain discussed Dr. Matamoros he will consult admit to hospitalist orders written Medical Records I reviewed the patient's medical records. Labs I reviewed the patient's lab results. 06/07/23 02:51 06/07/23 02:51 Laboratory Results WBC 5.34 10^3/uL (3.29-11.43) 06/04/23 09:01 RBC 3.67 10^6/uL (3.85-5.65) L 06/04/23 09:01 Hgb 11.30 g/dL (11.27-16.99) 06/04/23 09:01 Hct 36.0 % (37-53) L 06/04/23 09:01 MCV 98.1 fl (82-101) 06/04/23 09:01 MCH 30.8 pg (27-33) 06/04/23 09: MCHC 31.4 g/dL (30-55) 06/04/23 09:01 RDW 13.9 % (12.1-15.1) 06/04/23 09:01 Plt Count 394 10^3/cmm (157-399) 06/04/23 09:01 MPV 10.9 fL (7.4-10.4) H 06/04/23 09:01 Neut % (Auto) 51.7 % 06/04/23 09:01 Lymph % (Auto) 35.2 % 06/04/23 09:01 Coffee % (Auto) 8.1 % 06/04/23 09:01 Eos % (Auto) 3.7 % 06/04/23 09:01 Baso % (Auto) 0.9 % 06/04/23 09:01 Neut # (Auto) 2.76 10^3/uL (1.8-7.7) 06/04/23 09:01 Lymph # (Auto) 1.9 10^3/uL (0.8-4.8) 06/04/23 09:01 Coffee # (Auto) 0.4 10^3/uL (0.2-0.9) 06/04/23 09:01 Eos # (Auto) 0.2 10^3/uL (0.0-0.8) 06/04/23 09:01 Baso # (Auto) 0.1 10^3/uL (0.0-0.1) 06/04/23 09:01 Nucleated RBC % (auto) 0 % 06/04/23 09:01 Nucleated RBCs # 0.0 /100WBC 06/04/23 09:01 Sodium 139 mmol/L (136-145) 06/04/23 09:01 Potassium 3.8 mmol/L (3.5-5.1) 06/04/23 09:01 Chloride 103 mmol/L (98-107) 06/04/23 09:01 Carbon Dioxide 22 mmol/L (22-29) 06/04/23 09:01 Anion Gap 17.8 (5-19) 06/04/23 09:01 BUN 21 mg/dL (6-20) H 06/04/23 09:01 Creatinine 1.8 mg/dL (0.7-1.2) H 06/04/23 09:01 GFR Calculation 49.4 mL/min (90-130) L 06/04/23 09:01 Glucose 92 mg/dL (65-115) 06/04/23 09:01 Calculated Osmolality 291 mOsm/kg (285-295) 06/04/23 09:01 Calcium 9.1 mg/dL (8.5-10.5) 06/04/23 09:01 Total Bilirubin 0.2 mg/dL (0.15-1.2) 06/04/23 09:01 AST 14 U/L (0-40) 06/04/23 09:01 ALT 10 U/L (0-41) 06/04/23 09:01 Alkaline Phosphatase 111 U/L (40-130) 06/04/23 09:01 Total Protein 8.4 g/dL (6.6-8.7) 06/04/23 09:01 Albumin 4.0 g/dL (3.5-5.2) 06/04/23 09:01 Globulin 4.4 g/dL (1.3-4.6) 06/04/23 09:01 Levetiracetam <2.0 mcg/mL (6.0-46.0) L 06/04/23 09:01 All radiology interpretation(s) finalized by discharge Discharge Plan Discharge Patient Disposition: Admitted As Inpatient Admit Provider: Pierre Nails Clinical Impression: Lumbar stenosis with neurogenic claudication, CKD (chronic kidney disease), Lumbar radiculopathy, Status post lumbar spinal fusion, Seizure Condition: Stable Discharge Diet: Cardiac Discharge Activity: Resume usual activity Coding Level of Care Code ED Uranium Processing Supervisor for Luis Reeder
[2023-06-04 11:41] LABS: Basophils # 0.1 10^3/uL (0.0-0.1); Basophils % 0.9 %; Eosinophils # 0.2 10^3/uL (0.0-0.8); Eosinophils % 3.7 %; Lymphocytes # 1.9 10^3/uL (0.8-4.8); Lymphocytes % 35.2 %; Mean Corpuscular HGB Conc 31.4 g/dL (30-55); Mean Corpuscular Hemoglobin 30.8 pg (27-33); Mean Corpuscular Volume 98.1 fl (82-101); Mean Platelet Volume 10.9 fL (7.4-10.4); Monocytes # 0.4 10^3/uL (0.2-0.9); Monocytes % 8.1 %; Neutrophils # 2.76 10^3/uL (1.8-7.7); Neutrophils % 51.7 %; Nucleated Red Blood Cells % 0 %; Platelet Count 394 10^3/cmm (157-399); Red Blood Count 3.67 10^6/uL (3.85-5.65); Red Cell Distribution Width 13.9 % (12.1-15.1); White Blood Count 5.34 10^3/uL (3.29-11.43)
[2023-06-04 11:49] LABS: Alanine Aminotransferase 10 U/L (0-41); Alkaline Phosphatase 111 U/L (40-130); Anion Gap 17.8 (5-19); Aspartate Amino Transferase 14 U/L (0-40); Blood Urea Nitrogen 21 mg/dL (6-20); Calcium 9.1 mg/dL (8.5-10.5); Carbon Dioxide 22 mmol/L (22-29); Chloride 103 mmol/L (98-107); Globulin 4.4 g/dL (1.3-4.6); Glomerular Filtration Rate 49.4 mL/min (90-130); Glucose 92 mg/dL (65-115); Osmolality Calculated 291 mOsm/kg (285-295); Potassium 3.8 mmol/L (3.5-5.1); Sodium 139 mmol/L (136-145); Total Bilirubin 0.2 mg/dL (0.15-1.2); Total Protein 8.4 g/dL (6.6-8.7)
--- NOTE | 2023-06-04 13:00 | P.HP_ITS ---
Providers/Chief Complaint 2 Admitting Physician: Pierre Nails MD Primary Care Provider: Arlet Hernandez NP Chief Complaint: pain/unable to walk,previous lumbar surgery History of Present Illness Derek Marcus is a 47 year old male presenting to the emergency department with escalating back pain, right leg symptoms. He recently had surgery on May [address] Matamoros, L3-S1 posterior spinal fusion. Patient reports he was in pain since his surgery, but has been able to ambulate. He reports he had a seizure 4 days ago, fell hitting his back. He had increased pain at that time and some more numbness from his right knee to his right groin. He states he did not walk today secondary to the pain and spasms. He reports he has occasional breakthrough seizures, this is not unusual for him with his medications. He states that they are usually triggered by coughing, or potentially Valsalva. He denies any fever, wound issues. He denies any head injury. No incontinence. In the emergency department he got some dexamethasone, ketorolac, and several doses of morphine. They were not able to get his pain under control to ambulate. Review of Systems 2 General: Reports: 10 or more systems reviewed and unremarkable except in HPI and below Card: Denies: chest pain Resp: Denies: dyspnea GI: Denies: abdominal pain Medications/Allergies Home Medications Medication Instructions Recorded Confirmed Last Taken Type allopurinol 100 mg tablet 100 mg PO QPM 10/01/21 06/04/23 06/03/23 History aspirin 81 mg tablet,delayed 162 mg PO QAM 10/01/21 06/04/23 06/03/23 History release (Adult Low Dose Aspirin) brexpiprazole 0.5 mg tablet 0.5 mg PO QAM 10/01/21 06/04/23 06/03/23 History (Rexulti) citalopram 40 mg tablet 40 mg PO QAM 10/01/21 06/04/23 06/03/23 History furosemide 40 mg tablet 40 mg PO BID 10/01/21 06/04/23 06/03/23 History mirtazapine 15 mg tablet 15 mg PO DAILY 10/01/21 06/04/23 06/03/23 History pantoprazole 40 mg tablet,delayed 40 mg PO BID 10/01/21 06/04/23 06/03/23 History release prazosin 2 mg capsule 2 mg PO BEDTIME 10/01/21 06/04/23 06/03/23 History trazodone 300 mg tablet 300 mg PO BEDTIME 10/01/21 06/04/23 06/03/23 History albuterol sulfate 90 mcg/actuation 2 puff inhalation Q6H PRN 12/16/22 06/04/23 05/11/23 History aerosol inhaler shortness ofbreath potassium chloride 10 mEq 10 meq PO DAILY 12/16/22 06/04/23 06/03/23 History capsule,extended release amlodipine 10 mg tablet 10 mg PO DAILY #90 tabs 01/15/23 06/04/23 06/03/23 Rx spironolactone 25 mg tablet 25 mg PO BID #180 tabs 01/15/23 06/04/23 06/03/23 Rx carvedilol 25 mg tablet 50 mg (2 x 25 mg) PO BID #360 tabs 02/04/23 06/04/23 06/03/23 Rx [id number] Bone Growth Stimulator #1 ea 02/26/23 06/04/23 Unknown Rx levetiracetam 750 mg tablet 750 mg PO BID #60 tabs 05/10/23 06/04/23 06/03/23 Rx (Keppra) gabapentin 800 mg tablet 800 mg PO TID 05/13/23 06/04/23 06/03/23 History diazepam 5 mg tablet 5 mg PO Q8H PRN Anxiety/spasms #30 05/20/23 06/04/23 Unknown Rx tabs hydrocodone 10 mg-acetaminophen 1 tab PO Q4H PRN pain 7 days #40 05/26/23 06/04/23 Unknown Rx 325 mg tablet tabs Allergies Allergy/AdvReac Type Severity Reaction Status Date / Time No Known Allergies Allergy Verified 06/04/23 08:50 PFSH Acute 2 PFSH: Medical History Tobacco dependence COPD (chronic obstructive pulmonary disease) Pulmonary arterial hypertension Immunocompromised state Staph skin infection Cardiac resynchronization therapy defibrillator (INSTRUMENT INSPECTOR-D) in place PTSD (post-traumatic stress disorder) CKD (chronic kidney disease) CHF (congestive heart failure) HTN (hypertension) Anxiety Depression Sinus tachycardia Surgical History S/P placement of cardiac pacemaker S/P hemorrhoidectomy Family History Mother Diabetes Heart disease Hypertension Father Diabetes Heart disease Social History Smoking and tobacco/nicotine status: current some day tobacco/nicotine user cigarettes Alcohol intake: current Alcohol intake frequency: holidays/special occasions only Alcohol type: hard liquor Substance/Drug Use: never Vitals/I&O/Wt Last Vital Signs Temp 97.8 F 06/04/23 08:45 Pulse 84 06/04/23 12:41 Resp 16 06/04/23 12:41 BP 138/81 06/04/23 12:41 Pulse Ox 97 06/04/23 12:41 O2 Del Method Room Air 06/04/23 12:41 Weight last 48 hrs Weight 108.862 kg Physical Exam 2 Narrative: General exam is an -Filipino male, in no distress, conversant and descriptive in his symptomatology HEENT: Atraumatic normocephalic. Oropharynx clear. Neck is supple no lymphadenopathy thyromegaly Cardiovascular regular rate and rhythm without murmur Lungs clear Abdomen is soft. No obvious organomegaly exams deferred Extremities no cyanosis clubbing or edema Back well-healed surgical site Neuro: Subjective numbness, right leg. Diminished strength right leg. No evidence of foot drop. No sacral paresthesias. Data 06/04/23 09:01 06/04/23 09:01 Other Labs: LFTs, albumin, calcium normal Keppra level sent Lumbar CT demonstrates right paracentral protrusion L5-S1 affecting right S1 nerve root Urinalysis ordered A&P Assessment and plan (1) Back pain: Patient presents with intractable back pain, inability to walk following fall and progressive pain. He recently underwent laminectomy. PT consult Pain control. Initiate oxycodone, muscle relaxant, morphine for breakthrough pain. Not a candidate for anti-inflammatories secondary to kidney disease Orthopedic spine surgery consult (2) Seizure: Patient with history of seizure-like disorder Continue current home medications Obtain Keppra level Seizure precautions (3) Fall: See above (4) Status post lumbar spinal fusion: Orthopedic spine surgery consult (5) CKD (chronic kidney disease): BMP daily Check urinalysis Qualifiers: Chronic kidney disease stage: stage 3 (moderate) Chronic kidney disease stage 3 subtype: stage 3a (GFR 45-59) Qualified Code(s): N18.31 - Chronic kidney disease, stage 3a (6) Nonischemic cardiomyopathy: Has pacemaker for 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
[2023-06-04] MEDS: gabapentin 400 mg Capsule 800 MG PO ×2 (15:52→20:50)
[2023-06-04] MEDS: heparin 5,000 unit/mL INJ 1 mL 5000 UNIT SUBCUT (15:53)
[2023-06-04] MEDS: FUROsemide 40 mg Tablet PO (17:31)
[2023-06-04] MEDS: pantoprazole DR 40 mg Tablet PO (17:31)
[2023-06-04] MEDS: spironolactone 25 mg Tablet PO (17:31)
[2023-06-04] MEDS: allopurinol 100 mg Tablet PO (17:31)
[2023-06-04] MEDS: carvedilol 25 mg Tablet 50 MG PO (17:32)
[2023-06-04] MEDS: levETIRAcetam 500 mg Tablet 750 MG PO (17:32)
[2023-06-04] MEDS: prazosin 1 mg Capsule 2 MG PO (20:50)
[2023-06-04] MEDS: trazodone 150 mg Tablet 300 MG PO (20:50)
[2023-06-04] MEDS: oxyCODONE 5 mg IR Tab/Cap 10 MG PO (20:56)
[2023-06-04] MEDS: methocarbamol 500 mg Tablet PO (21:14)
[2023-06-05] VITALS (10 sets, daily range): BP systolic 124–152; BP diastolic 82–98; PULSE 69–93; RESP 13–18; TEMP 36.5–37; O2SAT 95–98
[2023-06-05 01:03] LABS: Add Urine Microscopic? NO; Charge for UA Resulting for Rev
[2023-06-05 01:06] LABS: Bilirubin Urine Neg (Negative); Blood Urine Neg (Negative); Glucose Urine UA Norm (Normal); Ketones Urine Negative (Negative); Leukocyte Esterase Urine Negative (Negative); Nitrate Urine Negative (Negative); Protein Urine Neg (Negative); Specific Gravity, Urine 1.015 (1.005-1.030); Urine Appearance Clear (CLEAR); Urine Color Yellow (Yellow); Urobilinogen Urine 1 mg/dL (Negative); pH Urine 5 (5-7)
[2023-06-05] MEDS: heparin 5,000 unit/mL INJ 1 mL 5000 UNIT SUBCUT ×2 (02:21→16:54)
[2023-06-05] MEDS: morphine 4 mg/mL SDV 1 mL 2 MG IVP (02:31)
[2023-06-05 05:37] LABS: Basophils % 0.3 %; Hematocrit 32.8 % (37-53); Lymphocytes # 1.2 10^3/uL (0.8-4.8); Lymphocytes % 15.3 %; Mean Corpuscular HGB Conc 31.4 g/dL (30-55); Mean Corpuscular Hemoglobin 30.7 pg (27-33); Mean Corpuscular Volume 97.9 fl (82-101); Mean Platelet Volume 10.8 fL (7.4-10.4); Monocytes # 0.6 10^3/uL (0.2-0.9); Monocytes % 7.7 %; Neutrophils # 6.08 10^3/uL (1.8-7.7); Neutrophils % 76.4 %; Nucleated Red Blood Cells % 0 %; Platelet Count 331 10^3/cmm (157-399); Red Blood Count 3.35 10^6/uL (3.85-5.65); Red Cell Distribution Width 13.8 % (12.1-15.1); White Blood Count 7.95 10^3/uL (3.29-11.43)
[2023-06-05 06:02] LABS: Blood Urea Nitrogen 29 mg/dL (6-20); Calcium 8.6 mg/dL (8.5-10.5); Carbon Dioxide 20 mmol/L (22-29); Chloride 104 mmol/L (98-107); Glomerular Filtration Rate 43.7 mL/min (90-130); Glucose 109 mg/dL (65-115); Osmolality Calculated 290 mOsm/kg (285-295); Sodium 137 mmol/L (136-145)
[2023-06-05] MEDS: citalopram 20 mg Tablet 40 MG PO (06:08)
[2023-06-05] MEDS: methocarbamol 500 mg Tablet PO (06:08)
[2023-06-05] MEDS: aspirin 81 mg EC Tablet 162 MG PO (06:08)
[2023-06-05] MEDS: oxyCODONE 5 mg IR Tab/Cap 10 MG PO ×2 (06:08→11:04)
[2023-06-05 09:02] LABS: Levetiracetam Immunoassy <2.0 mcg/mL (6.0-46.0)
[2023-06-05] MEDS: levETIRAcetam 500 mg Tablet 750 MG PO ×2 (09:14→16:55)
[2023-06-05] MEDS: spironolactone 25 mg Tablet PO ×2 (09:14→16:56)
[2023-06-05] MEDS: potassium chloride ER 10 mEq Tablet PO (09:14)
[2023-06-05] MEDS: FUROsemide 40 mg Tablet PO (09:14)
[2023-06-05] MEDS: carvedilol 25 mg Tablet 50 MG PO ×2 (09:15→16:55)
[2023-06-05] MEDS: gabapentin 400 mg Capsule 800 MG PO ×3 (09:15→21:31)
[2023-06-05] MEDS: pantoprazole DR 40 mg Tablet PO ×2 (09:15→16:55)
[2023-06-05] MEDS: amlodipine 10 mg Tablet PO (09:15)
[2023-06-05] MEDS: mirtazapine 15 mg Tablet PO (09:15)
--- NOTE | 2023-06-05 09:52 | P.CONIM_ITS ---
Providers/Reason For Consult 2 Consulting Physician/Specialty*: hospitalist Reason for Consult*: Back pain Attending Physician: Roderick Blackburn MD Primary Care Provider: Arlet Hernandez NP History of Present Illness History of Present Illness Derek Marcus is a 47 year old male had surgery patient had surgery on his back on 05 12. At this point patient had a flareup of the symptoms on the right side. He was admitted for pain control today is feeling better still having the right leg pain but pain is much more tolerable. At this point he feels like is from the walker which is extremely low cause him to hunch over when he walks. Review of Systems 2 General: Reports: 10 or more systems reviewed and unremarkable except in HPI and below Card: Denies: chest pain Resp: Denies: dyspnea GI: Denies: abdominal pain Medications/Allergies Home Medications Medication Instructions Recorded Confirmed Last Taken Type allopurinol 100 mg tablet 100 mg PO QPM 10/01/21 06/04/23 06/03/23 History aspirin 81 mg tablet,delayed 162 mg PO QAM 10/01/21 06/04/23 06/03/23 History release (Adult Low Dose Aspirin) brexpiprazole 0.5 mg tablet 0.5 mg PO QAM 10/01/21 06/04/23 06/03/23 History (Rexulti) citalopram 40 mg tablet 40 mg PO QAM 10/01/21 06/04/23 06/03/23 History furosemide 40 mg tablet 40 mg PO BID 10/01/21 06/04/23 06/03/23 History mirtazapine 15 mg tablet 15 mg PO DAILY 10/01/21 06/04/23 06/03/23 History pantoprazole 40 mg tablet,delayed 40 mg PO BID 10/01/21 06/04/23 06/03/23 History release prazosin 2 mg capsule 2 mg PO BEDTIME 10/01/21 06/04/23 06/03/23 History trazodone 300 mg tablet 300 mg PO BEDTIME 10/01/21 06/04/23 06/03/23 History albuterol sulfate 90 mcg/actuation 2 puff inhalation Q6H PRN 12/16/22 06/04/23 05/11/23 History aerosol inhaler shortness ofbreath potassium chloride 10 mEq 10 meq PO DAILY 0606/04/23 06/03/23 History capsule,extended release amlodipine 10 mg tablet 10 mg PO DAILY #90 tabs 01/15/23 06/04/23 06/03/23 Rx spironolactone 25 mg tablet 25 mg PO BID #180 tabs 01/15/23 06/04/23 06/03/23 Rx carvedilol 25 mg tablet 50 mg (2 x 25 mg) PO BID #360 tabs 02/04/23 06/04/23 06/03/23 Rx [id number] Bone Growth Stimulator #1 ea 02/26/23 06/04/23 Unknown Rx levetiracetam 750 mg tablet 750 mg PO BID #60 tabs 05/10/23 06/04/23 06/03/23 Rx (Keppra) gabapentin 800 mg tablet 800 mg PO TID 05/13/23 06/04/23 06/03/23 History diazepam 5 mg tablet 5 mg PO Q8H PRN Anxiety/spasms #30 05/20/23 06/04/23 Unknown Rx tabs hydrocodone 10 mg-acetaminophen 1 tab PO Q4H PRN pain 7 days #40 05/26/23 06/04/23 Unknown Rx 325 mg tablet tabs Allergies Allergy/AdvReac Type Severity Reaction Status Date / Time No Known Allergies Allergy Verified 06/04/23 08:50 Current Medications Generic Name Dose Route Start Last Admin Trade Name Freq PRN Reason Stop Dose Admin Allopurinol 100 mg 06/04/23 18:00 06/04/23 17:31 Allopurinol 100 Mg Tablet PO 100 mg QPM NATALYA Administration Amlodipine Besylate 10 mg 06/05/23 09:00 06/05/23 09:15 Amlodipine 10 Mg Tablet PO 10 mg DAILY NATALYA Administration Aspirin 162 mg 06/05/23 06:00 06/05/23 06:08 Aspirin 81 Mg Ec Tablet PO 162 mg QAM NATALYA Administration Carvedilol 50 mg 06/04/23 18:00 06/05/23 09:15 Carvedilol 25 Mg Tablet PO 50 mg BID NATALYA Administration Citalopram Hydrobromide 40 mg 06/05/23 06:00 06/05/23 06:08 Citalopram 20 Mg Tablet PO 40 mg QAM NATALYA Administration Furosemide 40 mg 06/04/23 18:00 06/05/23 09:14 Furosemide 40 Mg Tablet PO 40 mg BID NATALYA Administration Gabapentin 800 mg 06/04/23 15:00 06/05/23 09:15 Gabapentin 400 Mg Capsule PO 800 mg TID NATALYA Administration Heparin Sodium (Porcine) 5,000 unit 06/04/23 14:30 06/05/23 02:21 Heparin 5,000 Unit/Ml Inj 1 Ml SUBCUT 5,000 unit Q12H NATALYA Administration Levetiracetam 750 mg 06/04/23 18:00 06/05/23 09:14 Levetiracetam 500 Mg Tablet PO 750 mg BID NATALYA Administration Methocarbamol 500 mg 06/04/23 14:00 06/05/23 06:08 Methocarbamol 500 Mg Tablet PO 500 mg QID PRN Administration MUSCLE SPASMS Mirtazapine 15 mg 06/05/23 09:00 06/05/23 09:15 Mirtazapine 15 Mg Tablet PO 15 mg DAILY NATALYA Administration Morphine Sulfate 2 mg 06/04/23 12:56 06/05/23 02:31 Morphine 4 Mg/Ml Sdv 1 Ml IVP 2 mg Q4H PRN Administration SEVERE PAIN Non-Formulary Medication 0.5 mg 06/05/23 06:00 06/05/23 06:08 Brexpiprazole [Rexulti] PO Not Given QAM [facility] Oxycodone HCl 10 mg 06/04/23 14:06 06/05/23 06:08 Oxycodone 5 Mg Ir Tab/Cap PO 10 mg Q4H PRN Administration SEVERE PAIN Pantoprazole Sodium 40 mg 06/04/23 18:00 06/05/23 09:[address] 40 Mg Tablet PO 40 mg BID NATALYA Administration Potassium Chloride 10 meq 06/05/23 09:00 06/05/23 09:14 Potassium Chloride Er 10 Meq Tablet PO 10 meq DAILY NATALYA Administration Prazosin HCl 2 mg 06/04/23 21:00 06/04/23 20:50 Prazosin 1 Mg Capsule PO 2 mg BEDTIME NATALYA Administration Spironolactone 25 mg 06/04/23 18:00 06/05/23 09:14 Spironolactone 25 Mg Tablet PO 25 mg BID NATALYA Administration Trazodone HCl 300 mg 06/04/23 21:00 06/04/23 20:50 Trazodone 150 Mg Tablet PO 300 mg BEDTIME NATALYA Administration PFSH Acute 2 PFSH: Medical History Tobacco dependence COPD (chronic obstructive pulmonary disease) Pulmonary arterial hypertension Immunocompromised state Staph skin infection Cardiac resynchronization therapy defibrillator (SURGICAL ELASTIC KNITTER-D) in place PTSD (post-traumatic stress disorder) CKD (chronic kidney disease) CHF (congestive heart failure) HTN (hypertension) Anxiety Depression Sinus tachycardia Surgical History S/P placement of cardiac pacemaker S/P hemorrhoidectomy Family History Mother Diabetes Heart disease Hypertension Father Diabetes Heart disease Social History Smoking and tobacco/nicotine status: current some day tobacco/nicotine user cigarettes Alcohol intake: current Alcohol intake frequency: holidays/special occasions only Alcohol type: hard liquor Substance/Drug Use: never Vitals/I&O/Wt Last Vital Signs Temp 98.1 F 06/05/23 08:00 Pulse 69 06/05/23 08:00 Resp 16 06/05/23 08:00 BP 149/98 06/05/23 08:00 Pulse Ox 98 06/05/23 08:00 O2 Del Method Room Air 06/05/23 03:46 06/04/23 06/05/23 06/05/23 22:59 06:59 14:59 Intake Total 420 / 420 440 / 860 Output Total 400 / 400 Balance 420 / 420 40 / 460 Weight last 48 hrs Weight 255 lb Weight 240 lb Physical Exam 2 Narrative: Patient is having pain in his back radiating to right side of his leg. Lateral thigh. Is 5 out of 5 strength bilateral lower extremities sensation intact. Data 06/05/23 05:05 06/05/23 05:05 A&P Assessment and plan (1) Status post lumbar spinal fusion: Patient is status post lumbar fusion. Pain is improved still having pain. I did add Valium. I would like to have physical therapy work with him to get a taller walker so he does not have to hunch over so much when he walks. Anticipate discharge tomorrow. Coding Level of Care Code Acute Code for Chg Fwd Diagnoses Status post lumbar spinal fusion Z98.1
--- NOTE | 2023-06-05 14:06 | PM.PN ---
Subjective Subjective: Patient was seen this morning, he tells me that his wheeled walker at bedside is too short, because of this, he has been leaning forward with ambulating, and he thinks that that worsened his back pain, he tells me that he discussed this with the insurance or the home health company, but they told him that he could not get a longer or taller wheeled walker unless he was 300 pounds, but he is 6 foot 3, he is quite disheartened about the situation, currently his pain is 9 out of 10, no seizure-like episodes this morning Vitals/I&O/Wt Last Vital Signs Temp 98 F 06/05/23 12:00 Pulse 76 06/05/23 12:00 Resp 18 06/05/23 12:00 BP 152/87 06/05/23 12:00 Pulse Ox 95 06/05/23 12:00 O2 Del Method Room Air 06/05/23 03:46 06/04/23 06/05/23 06/05/23 22:59 06:59 14:59 Intake Total 420 / 420 440 / 860 240 / 240 Output Total 400 / 400 Balance 420 / 420 40 / 460 240 / 240 Weight last 48 hrs Weight 115.666 kg Weight 108.862 kg Physical Exam Const: COMMON NORMALS: no acute distress and patient oriented x3 Resp: COMMON NORMALS: normal respiratory effort, No retractions, No use of accessory muscles and clear to auscultation bilaterally AUSCULTATION: clear to auscultation bilaterally Cardio: COMMON NORMALS: regular rate, regular rhythm, S1 normal heart sound present and S2 normal heart sound present RATE: regular rate RHYTHM: regular rhythm HEART SOUNDS: S1 normal heart sound present and S2 normal heart sound present GI: COMMON NORMALS: Normal to inspection, nondistended, normoactive bowel sounds present and non-tender Extremity: COMMON NORMALS: no pedal edema Neuro: COMMON NORMALS: patient oriented x3 Psych: COMMON NORMALS: mental status grossly normal Data 06/05/23 05:05 06/05/23 05:05 A&P Assessment and plan (1) Back pain: Patient presents with intractable back pain, inability to walk following fall and progressive pain. He recently underwent laminectomy. PT consult Pain control. Initiate oxycodone, muscle relaxant, morphine for breakthrough pain. Not a candidate for anti-inflammatories secondary to kidney disease Orthopedic spine surgery consult (2) Seizure: Patient with history of seizure-like disorder Continue current home medications Obtain Keppra level Seizure precautions (3) Fall: See above (4) Status post lumbar spinal fusion: Orthopedic spine surgery consult (5) CKD (chronic kidney disease): BMP daily Check urinalysis Qualifiers: Chronic kidney disease stage: stage 3 (moderate) Chronic kidney disease stage 3 subtype: stage 3a (GFR 45-59) Qualified Code(s): N18.31 - Chronic kidney disease, stage 3a (6) Nonischemic cardiomyopathy: 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
[2023-06-05] MEDS: allopurinol 100 mg Tablet PO (16:55)
[2023-06-05] MEDS: trazodone 150 mg Tablet 300 MG PO (21:31)
[2023-06-05] MEDS: prazosin 1 mg Capsule 2 MG PO (21:31)
[2023-06-06 02:51] LABS: Basophils % 0.5 %; Eosinophils # 0.1 10^3/uL (0.0-0.8); Eosinophils % 1.1 %; Hematocrit 31.2 % (37-53); Lymphocytes # 1.8 10^3/uL (0.8-4.8); Lymphocytes % 27.9 %; Mean Corpuscular HGB Conc 31.7 g/dL (30-55); Mean Corpuscular Hemoglobin 31.3 pg (27-33); Mean Corpuscular Volume 98.7 fl (82-101); Mean Platelet Volume 11.2 fL (7.4-10.4); Monocytes # 0.5 10^3/uL (0.2-0.9); Monocytes % 8.3 %; Neutrophils # 4.04 10^3/uL (1.8-7.7); Neutrophils % 61.9 %; Nucleated Red Blood Cells % 0 %; Platelet Count 280 10^3/cmm (157-399); Red Blood Count 3.16 10^6/uL (3.85-5.65); Red Cell Distribution Width 13.8 % (12.1-15.1); White Blood Count 6.52 10^3/uL (3.29-11.43)
[2023-06-06] MEDS: heparin 5,000 unit/mL INJ 1 mL 5000 UNIT SUBCUT (03:06)
[2023-06-06 03:20] LABS: Alanine Aminotransferase 8 U/L (0-41); Albumin Level 3.5 g/dL (3.5-5.2); Alkaline Phosphatase 91 U/L (40-130); Anion Gap 13.6 (5-19); Aspartate Amino Transferase 9 U/L (0-40); Blood Urea Nitrogen 25 mg/dL (6-20); Calcium 8.7 mg/dL (8.5-10.5); Carbon Dioxide 25 mmol/L (22-29); Chloride 105 mmol/L (98-107); Globulin 3.6 g/dL (1.3-4.6); Glomerular Filtration Rate 46.4 mL/min (90-130); Glucose 109 mg/dL (65-115); Osmolality Calculated 293 mOsm/kg (285-295); Potassium 4.6 mmol/L (3.5-5.1); Sodium 139 mmol/L (136-145); Total Bilirubin 0.2 mg/dL (0.15-1.2); Total Protein 7.1 g/dL (6.6-8.7)
[2023-06-06 03:48] VITALS: BP 158/97; PULSE 71; RESP 14; TEMP 36.5; O2SAT 97
[2023-06-06] MEDS: aspirin 81 mg EC Tablet 162 MG PO (07:07)
[2023-06-06] MEDS: citalopram 20 mg Tablet 40 MG PO (07:07)
[2023-06-06 08:00] VITALS: BP 123/82; PULSE 82; RESP 16; TEMP 36.4; O2SAT 97
[2023-06-06] MEDS: carvedilol 25 mg Tablet 50 MG PO ×2 (09:08→17:12)
[2023-06-06] MEDS: mirtazapine 15 mg Tablet PO (09:08)
[2023-06-06] MEDS: gabapentin 400 mg Capsule 800 MG PO ×2 (09:08→20:24)
[2023-06-06] MEDS: amlodipine 10 mg Tablet PO (09:08)
[2023-06-06] MEDS: potassium chloride ER 10 mEq Tablet PO (09:09)
[2023-06-06] MEDS: spironolactone 25 mg Tablet PO ×2 (09:09→17:12)
[2023-06-06] MEDS: levETIRAcetam 500 mg Tablet 750 MG PO ×2 (09:09→17:12)
[2023-06-06] MEDS: pantoprazole DR 40 mg Tablet PO ×2 (09:09→17:12)
[2023-06-06 12:00] VITALS: BP 128/84; PULSE 74; RESP 16; TEMP 36.3; O2SAT 98
--- NOTE | 2023-06-06 14:42 | PM.PN ---
Subjective Subjective: patient was seen this morning, has recieved new walker, at bedside, back pain is more under control, tells me he is not ready to go home today, he wants another day of pain control and pt as inpatient Vitals/I&O/Wt Last Vital Signs Temp 97.3 F L 06/06/23 12:00 Pulse 74 06/06/23 12:00 Resp 16 06/06/23 12:00 BP 128/84 06/06/23 12:00 Pulse Ox 98 06/06/23 12:00 O2 Del Method Room Air 06/06/23 12:00 06/05/23 06/06/23 06/06/23 22:59 06:59 14:59 Intake Total 240 / 480 240 / 720 720 / 720 Output Total 1100 / 1100 Balance -860 / -620 240 / -380 720 / 720 Weight last 48 hrs Weight 114.56 kg Weight 115.666 kg Physical Exam Const: COMMON NORMALS: no acute distress and patient oriented x3 Resp: COMMON NORMALS: normal respiratory effort, No retractions, No use of accessory muscles and clear to auscultation bilaterally AUSCULTATION: clear to auscultation bilaterally Cardio: COMMON NORMALS: regular rate, regular rhythm, S1 normal heart sound present and S2 normal heart sound present RATE: regular rate RHYTHM: regular rhythm HEART SOUNDS: S1 normal heart sound present and S2 normal heart sound present GI: COMMON NORMALS: Normal to inspection, nondistended, normoactive bowel sounds present and non-tender Extremity: COMMON NORMALS: no pedal edema Neuro: COMMON NORMALS: patient oriented x3 Psych: COMMON NORMALS: mental status grossly normal Data 06/06/23 01:55 06/06/23 01:55 A&P Assessment and plan (1) Back pain: Patient presents with intractable back pain, inability to walk following fall and progressive pain. He recently underwent laminectomy. PT consult Pain control. Initiate oxycodone, muscle relaxant, morphine for breakthrough pain. Not a candidate for anti-inflammatories secondary to kidney disease Orthopedic spine surgery consult (2) Seizure: Patient with history of seizure-like disorder Continue current home medications Obtain Keppra level Seizure precautions (3) Fall: See above (4) Status post lumbar spinal fusion: Orthopedic spine surgery consult (5) CKD (chronic kidney disease): [facility] daily Check urinalysis Qualifiers: Chronic kidney disease stage: stage 3 (moderate) Chronic kidney disease stage 3 subtype: stage 3a (GFR 45-59) Qualified Code(s): N18.31 - Chronic kidney disease, stage 3a (6) Nonischemic cardiomyopathy: 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
--- NOTE | 2023-06-06 14:55 | PC.NURSE ---
This nurse attempted to get patient to take his 1430 heparin and 1500 gabapentin, however, pt would look at me and then close his eyes again and did not want to be bothered.
[2023-06-06 16:00] VITALS: BP 123/76; PULSE 76; RESP 16; TEMP 37.1; O2SAT 96
[2023-06-06] MEDS: allopurinol 100 mg Tablet PO (17:12)
[2023-06-06 19:00] VITALS: BP 125/85; PULSE 76; RESP 18; TEMP 36.6; O2SAT 97
[2023-06-06] MEDS: prazosin 1 mg Capsule 2 MG PO (20:23)
[2023-06-06] MEDS: trazodone 150 mg Tablet 300 MG PO (20:24)
[2023-06-06 23:05] VITALS: BP 112/74; PULSE 71; RESP 20; TEMP 36.7; O2SAT 100
[2023-06-07] MEDS: heparin 5,000 unit/mL INJ 1 mL 5000 UNIT SUBCUT (01:57)
[2023-06-07 03:45] LABS: Basophils % 0.7 %; Eosinophils # 0.2 10^3/uL (0.0-0.8); Eosinophils % 3.3 %; Hematocrit 31.8 % (37-53); Lymphocytes # 1.8 10^3/uL (0.8-4.8); Lymphocytes % 40.1 %; Mean Corpuscular HGB Conc 31.1 g/dL (30-55); Mean Corpuscular Hemoglobin 30.8 pg (27-33); Mean Corpuscular Volume 99.1 fl (82-101); Mean Platelet Volume 11.1 fL (7.4-10.4); Monocytes # 0.4 10^3/uL (0.2-0.9); Monocytes % 9.6 %; Neutrophils # 2.09 10^3/uL (1.8-7.7); Neutrophils % 45.9 %; Nucleated Red Blood Cells % 0 %; Platelet Count 272 10^3/cmm (157-399); Red Blood Count 3.21 10^6/uL (3.85-5.65); Red Cell Distribution Width 13.9 % (12.1-15.1); White Blood Count 4.56 10^3/uL (3.29-11.43)
[2023-06-07 03:48] VITALS: BP 125/81; PULSE 84; RESP 17; TEMP 36.8; O2SAT 97
[2023-06-07 04:10] LABS: Alanine Aminotransferase 8 U/L (0-41); Albumin Level 3.4 g/dL (3.5-5.2); Alkaline Phosphatase 94 U/L (40-130); Anion Gap 16.2 (5-19); Aspartate Amino Transferase 8 U/L (0-40); Blood Urea Nitrogen 18 mg/dL (6-20); Calcium 8.6 mg/dL (8.5-10.5); Carbon Dioxide 22 mmol/L (22-29); Chloride 104 mmol/L (98-107); Globulin 3.4 g/dL (1.3-4.6); Glomerular Filtration Rate 49.4 mL/min (90-130); Glucose 115 mg/dL (65-115); Osmolality Calculated 289 mOsm/kg (285-295); Potassium 4.2 mmol/L (3.5-5.1); Sodium 138 mmol/L (136-145); Total Bilirubin 0.2 mg/dL (0.15-1.2); Total Protein 6.8 g/dL (6.6-8.7)
[2023-06-07] MEDS: citalopram 20 mg Tablet 40 MG PO (05:54)
[2023-06-07] MEDS: aspirin 81 mg EC Tablet 162 MG PO (05:54)
[2023-06-07] MEDS: carvedilol 25 mg Tablet 50 MG PO (07:50)
[2023-06-07 07:51] VITALS: RESP 18
[2023-06-07] MEDS: pantoprazole DR 40 mg Tablet PO (07:51)
[2023-06-07] MEDS: oxyCODONE 5 mg IR Tab/Cap 10 MG PO (07:51)
[2023-06-07] MEDS: levETIRAcetam 500 mg Tablet 750 MG PO (07:51)
[2023-06-07] MEDS: gabapentin 400 mg Capsule 800 MG PO (07:52)
[2023-06-07] MEDS: spironolactone 25 mg Tablet PO (07:52)
[2023-06-07] MEDS: mirtazapine 15 mg Tablet PO (07:52)
[2023-06-07] MEDS: amlodipine 10 mg Tablet PO (07:52)
[2023-06-07] MEDS: potassium chloride ER 10 mEq Tablet PO (07:52)
[2023-06-07 08:00] VITALS: BP 128/80; PULSE 101; RESP 18; TEMP 36.6; O2SAT 97
--- NOTE | 2023-06-07 10:34 | PM.DCS ---
Discharge Providers Date of Admission: 06/04/23 11:40 Date of Discharge: June 07, 2023 Attending Provider at Admission: Pierre Nails MD Attending Provider at Discharge: Roderick Blackburn MD Primary Care Provider: Arlet Hernandez NP Diagnoses at Discharge Discharge Diagnosis (1) Back pain: Status: Acute (2) Seizure: Status: Acute (3) Fall: Status: Acute (4) Status post lumbar spinal fusion: Status: Acute (5) CKD (chronic kidney disease): Status: Acute Qualifiers: Chronic kidney disease stage: stage 3 (moderate) Chronic kidney disease stage 3 subtype: stage 3a (GFR 45-59) Qualified Code(s): N18.31 - Chronic kidney disease, stage 3a (6) Nonischemic cardiomyopathy: Status: Acute Reason for Visit Reason for Visit: pain/unable to walk,previous lumbar surgery Hospital Course Hospital Course Derek Marcus is a 47 year old male presenting to the emergency department with escalating back pain, right leg symptoms. He recently had surgery on May [address] Matamoros, L3-S1 posterior spinal fusion. Patient reports he was in pain since his surgery, but has been able to ambulate. He reports he had a seizure 4 days ago, fell hitting his back. He had increased pain at that time and some more numbness from his right knee to his right groin. He states he did not walk today secondary to the pain and spasms. He reports he has occasional breakthrough seizures, this is not unusual for him with his medications. He states that they are usually triggered by coughing, or potentially Valsalva. He denies any fever, wound issues. He denies any head injury. No incontinence. In the emergency department he got some dexamethasone, ketorolac, and several doses of morphine. They were not able to get his pain under control to ambulate. Patient was admitted to [facility] for intractable back pain, following back surgery, monitored as inpatient, there was issues with his wheeled walker given he is 6 foot 3, it was too short for him, and he felt that that is the reason why his back started hurting him after surgery, he can get the appropriate wheeled walker. Were able to switch out for him to the appropriate wheeled walker for his height, and he was able to use it inpatient and was satisfied with it, discharged on his home pain medications, hydrocodone, Narcan as needed for opiate overdose, had extensive counseling about minimizing narcotic use at home, do not drive or operate additional drink while taking medication, if any concerns for opiate overdose use Narcan call 911, he voiced understanding, all questions answered, will be discharged home today, There was concerns for breakthrough seizures, during his initial ER encounter, no recurrent seizure-like episodes during his hospitalization, discharged with his home seizure medications, Keppra 750 twice daily, follow-up with his neurologist as outpatient Physical Exam Const: COMMON NORMALS: no acute distress and patient oriented x3 Resp: COMMON NORMALS: normal respiratory effort, No retractions, No use of accessory muscles and clear to auscultation bilaterally AUSCULTATION: clear to auscultation bilaterally Cardio: COMMON NORMALS: regular rate, regular rhythm, S1 normal heart sound present and S2 normal heart sound present RATE: regular rate RHYTHM: regular rhythm HEART SOUNDS: S1 normal heart sound present and S2 normal heart sound present GI: COMMON NORMALS: Normal to inspection, nondistended, normoactive bowel sounds present and non-tender Extremity: COMMON NORMALS: no pedal edema Neuro: COMMON NORMALS: patient oriented x3 Psych: COMMON NORMALS: mental status grossly normal Discharge Data Studies Completed and Pending Completed Studies During Hospitalization Category Date Time Status CT lumbar spine wo con* [id number] Stat Cat Scan 06/04/23 09:11 Completed Pending at discharge Category Date Time Status Complete Blood Count w/Auto AM LABS Lab 06/08/23 04:00 Ordered Comprehensive Metabolic Panel AM LABS Lab 06/08/23 04:00 Ordered Laboratory Results WBC 4.56 10^3/uL (3.29-11.43) 06/07/23 02:51 RBC 3.21 10^6/uL (3.85-5.65) L 06/07/23 02:51 Hgb 9.90 g/dL (11.27-16.99) L 06/07/23 02:51 Hct 31.8 % (37-53) L 06/07/23 02:51 MCV 99.1 fl (82-101) 06/07/23 02:51 MCH 30.8 pg (27-33) 06/07/23 02:51 MCHC 31.1 g/dL (30-55) 06/07/23 02:51 RDW 13.9 % (12.1-15.1) 06/07/23 02:51 Plt Count 272 10^3/cmm (157-399) 06/07/23 02:51 MPV 11.1 fL (7.4-10.4) H 06/07/23 02:51 Neut % (Auto) 45.9 % 06/07/23 02:51 Lymph % (Auto) 40.1 % 06/07/23 02:51 Ocean % (Auto) 9.6 % 06/07/23 02:51 Eos % (Auto) 3.3 % 06/07/23 02:51 Baso % (Auto) 0.7 % 06/07/23 02:51 Neut # (Auto) 2.09 10^3/uL (1.8-7.7) 06/07/23 02:51 Lymph # (Auto) 1.8 10^3/uL (0.8-4.8) 06/07/23 02:51 Ocean # (Auto) 0.4 10^3/uL (0.2-0.9) 06/07/23 02:51 Eos # (Auto) 0.2 10^3/uL (0.0-0.8) 06/07/23 02:51 Baso # (Auto) 0.0 10^3/uL (0.0-0.1) 06/07/23 02:51 Nucleated RBC % (auto) 0 % 06/07/23 02:51 Nucleated RBCs # 0.0 /100WBC 06/07/23 02:51 Sodium 138 mmol/L (136-145) 06/07/23 02:51 Potassium 4.2 mmol/L (3.5-5.1) 06/07/23 02:51 Chloride 104 mmol/L (98-107) 06/07/23 02:51 Carbon Dioxide 22 mmol/L (22-29) 06/07/23 02:51 Anion Gap 16.2 (5-19) 06/07/23 02:51 BUN 18 mg/dL (6-20) 06/07/23 02:51 Creatinine 1.8 mg/dL (0.7-1.2) H 06/07/23 02:51 GFR Calculation 49.4 mL/min (90-130) L 06/07/23 02:51 Glucose 115 mg/dL (65-115) 06/07/23 02:51 Calculated Osmolality 289 mOsm/kg (285-295) 06/07/23 02:51 Calcium 8.6 mg/dL (8.5-10.5) 06/07/23 02:51 Total Bilirubin 0.2 mg/dL (0.15-1.2) 06/07/23 02:51 AST 8 U/L (0-40) 06/07/23 02:51 ALT 8 U/L (0-41) 06/07/23 02:51 Alkaline Phosphatase 94 U/L (40-130) 06/07/23 02:51 Total Protein 6.8 g/dL (6.6-8.7) 06/07/23 02:51 Albumin 3.4 g/dL (3.5-5.2) L 06/07/23 02:51 Globulin 3.4 g/dL (1.3-4.6) 06/07/23 02:51 Urine Color Yellow (Yellow) 06/05/23 00:58 Urine Appearance Clear (CLEAR) 06/05/23 00:58 Urine pH 5 (5-7) 06/05/23 00:58 Ur Specific [place] 1.015 (1.005-1.030) 06/05/23 00:58 Urine Protein Neg (Negative) 06/05/23 00:58 Urine Glucose (UA) Norm (Normal) 06/05/23 00:58 Urine Ketones Negative (Negative) 06/05/23 00:58 Urine Blood Neg (Negative) 06/05/23 00:58 Urine Nitrate Negative (Negative) 06/05/23 00:58 Urine Bilirubin Neg (Negative) 06/05/23 00:58 Urine Urobilinogen 1 mg/dL (Negative) H 06/05/23 00:58 Ur Leukocyte Esterase Negative (Negative) 06/05/23 00:58 Levetiracetam <2.0 mcg/mL (6.0-46.0) L 06/04/23 09:01 Vitals Last Vital Signs Temp 97.8 F 06/07/23 08:00 Pulse 101 H 06/07/23 08:00 Resp 18 06/07/23 08:00 BP 128/80 06/07/23 08:00 Pulse Ox 97 06/07/23 08:00 O2 Del Method Room Air 06/07/23 08:00 Discharge Plan Discharge Patient Disposition: Home Condition: Stable Prescriptions: New naloxone [Narcan] 4 mg/actuation spray,non-aerosol 4 mg intranasal Q2M PRN (Reason: opioid overdose) Qty: 2 0RF Rx Instructions: spray 1 dose into ONE nostril; Continued Rexulti 0.5 mg tablet 0.5 mg PO QAM mirtazapine 15 mg tablet 15 mg PO DAILY prazosin 2 mg capsule 2 mg PO BEDTIME allopurinol 100 mg tablet 100 mg PO QPM pantoprazole 40 mg tablet,delayed release (DR/EC) 40 mg PO BID citalopram 40 mg tablet 40 mg PO QAM furosemide 40 mg tablet 40 mg PO BID trazodone 300 mg tablet 300 mg PO BEDTIME aspirin [Adult Low Dose Aspirin] 81 mg tablet,delayed release (DR/EC) 162 mg PO QAM diazepam 5 mg tablet 5 mg PO Q8H PRN (Reason: Anxiety/spasms) Qty: 30 0RF potassium chloride 10 mEq capsule, extended release 10 meq PO DAILY albuterol sulfate 90 mcg/actuation HFA aerosol inhaler 2 puff inhalation Q6H PRN (Reason: shortness ofbreath) amlodipine 10 mg tablet 10 mg PO DAILY Qty: 90 5RF spironolactone 25 mg tablet 25 mg PO BID Qty: 180 6RF levetiracetam [Keppra] 750 mg tablet 750 mg PO BID Qty: 60 3RF carvedilol 25 mg tablet 50 mg PO BID Qty: 360 1RF (DME) E0748 Bone Growth Stimulator See Rx Instructions .Route .MEDSUPPLY Qty: 1 0RF Rx Instructions: As directed hydrocodone-acetaminophen 10-325 mg tablet 1 tab PO Q4H PRN (Reason: pain) 7 Days Qty: 40 0RF gabapentin 800 mg Tablet 800 mg PO TID Discharge Orders: Discharge Order (Routine); Ordered 06/07/23 Ordered By: Roderick Blackburn Referrals: Arlet Hernandez NP [Primary Care Provider] - 06/08/23 11:30 am Discharge Diet: Cardiac Discharge Activity: Resume usual activity Patient Instructions: Opioid Safety Activity Restrictions/Additional Instructions: - Please follow-up with Dr. Matamoros ? Please use narcotics sparingly, if any concerns for opiate overdose please use Narcan, and call 911 Discharge Attestations Time Spent in Discharge Care*: greater than 30 min Quality Metrics Clinical Quality Measures [ No reported AMI, CVA or VTE this stay] Coding Level of Care Code 66192 Total time (in minutes) for Discharge: 45 Diagnoses Back pain M54.9 Seizure R56.9 Fall W19.XXXA Status post lumbar spinal fusion Z98.1 Stage 3a chronic kidney disease N18.31 Chronic kidney disease stage: stage 3 (moderate) Chronic kidney disease stage 3 subtype: stage 3a (GFR 45-59) Nonischemic cardiomyopathy I42.8
[2023-06-07 12:00] VITALS: BP 134/84; PULSE 78; RESP 18; TEMP 36.4; O2SAT 96
[2023-06-07 16:12] VITALS: BP 134/84; PULSE 78; RESP 18; TEMP 36.4; O2SAT 96
== END 2023-06-07 15:45 | disposition home or self-care (01) ==
LOC: ER 09:47 → MEDSURG 12:37
PROVIDERS: Admitting Provider Internal Medicine; Emergency Provider Family Medicine; PCP Nurse Practitioner Family; Visit Provider Family Medicine
DX: M54.9 Dorsalgia, unspecified (principal); Z98.1 Arthrodesis status; R56.9 Unspecified convulsions; Z91.81 History of falling; I13.0 Hypertensive heart and chronic kidney disease with heart failure and stage 1 through stage 4 chronic kidney disease, or unspecified chronic kidney disease; N18.31 Chronic kidney disease, stage 3a; I42.8 Other cardiomyopathies; Z79.82 Long term (current) use of aspirin; J44.9 Chronic obstructive pulmonary disease, unspecified; I50.9 Heart failure, unspecified; F17.210 Nicotine dependence, cigarettes, uncomplicated
CPT/HCPCS: 36415; 51798; 72131; 80048; 80053; 80177; 81003; 85025; 96365; 96372; 96374; 96375; 96376; 97116; 97161; 99285; G0378; J1100; J1644; J1885; J2270; J2405

== ENCOUNTER 2023-07-09 09:42 | Outpatient (CLI) | payer MEDICAID, SELFPAY ==
--- NOTE | 2023-07-09 09:52 | US_ITS ---
WS: [id number] TESTICULAR ULTRASOUND HISTORY: OTHER SPECIFIED DISORDERS OF THE MALE GENITAL ORGANS/LUMP, right-sided testicular pain. COMPARISON: None available. TECHNIQUE: Real-time and color Doppler imaging or utilized to perform a testicular ultrasound. Right testicle: 4.6 cm x 2.9 cm x 1.6 cm. Normal size and echogenicity. No mass or torsion. Dense cluster of calcification along the inferior R IGHT testicle with shadowing. Calcific location measures 1.1 x 1.2 x 1.3 cm. This may be within the t esticle at or within the scrotal sac. The exact location is difficult to determine. This is probably benign. Patient describes this mass as having been present for several years. Normal color Doppler is present throughout. Systolic and diastolic velocities are both present. No significant hydrocele. Right epididymis: Not visible. Left testicle: 4.3 cm x 2.7 cm x 1.9 cm. Normal size and echogenicity. No mass or torsion. Normal color Doppler is present throughout. Systolic and diastolic velocities are both present. No significant hydrocele. Left epididymis: Normal epididymis with no increased vascularity. IMPRESSION: 1. No evidence for orchitis or epididymitis. The RIGHT epididymis is not identified. 2. There is a calcified mass with dense shadowing along the inferior border of the RIGHT testicle. T his mass measures 1.1 x 1.2 x 1.3 cm. Favor this is benign as being described as present for numerous years. This may be a tunica albuginea cyst or calcification from prior injury. This also could be a calcified testicular mass.
== END 2023-07-09 09:43 | disposition home or self-care (01) ==
LOC: RAD 09:43
PROVIDERS: PCP Nurse Practitioner Family; Visit Provider Nurse Practitioner Family
DX: N50.89 Other specified disorders of the male genital organs (principal)
CPT/HCPCS: 76870

== ENCOUNTER 2023-07-20 09:37 | Outpatient (CLI) | payer MEDICAID, SELFPAY ==
[2023-07-20 10:12] LABS: Basophils % 0.8 %; Eosinophils # 0.2 10^3/uL (0.0-0.8); Hematocrit 35.7 % (37-53); Lymphocytes # 1.7 10^3/uL (0.8-4.8); Lymphocytes % 35.5 %; Mean Corpuscular HGB Conc 32.8 g/dL (30-55); Mean Corpuscular Hemoglobin 31.3 pg (27-33); Mean Corpuscular Volume 95.5 fl (82-101); Monocytes # 0.4 10^3/uL (0.2-0.9); Monocytes % 9.2 %; Neutrophils # 2.39 10^3/uL (1.8-7.7); Neutrophils % 50.3 %; Nucleated Red Blood Cells % 0 %; Platelet Count 267 10^3/cmm (157-399); Red Blood Count 3.74 10^6/uL (3.85-5.65); Red Cell Distribution Width 14.4 % (12.1-15.1); White Blood Count 4.76 10^3/uL (3.29-11.43)
[2023-07-20 10:28] LABS: Albumin Level 3.8 g/dL (3.5-5.2); Anion Gap 14.2 (5-19); Blood Urea Nitrogen 16 mg/dL (6-20); Calcium 8.5 mg/dL (8.5-10.5); Carbon Dioxide 25 mmol/L (22-29); Chloride 100 mmol/L (98-107); Glomerular Filtration Rate 65.7 mL/min (90-130); Glucose 111 mg/dL (65-115); Phosphorus 2.3 mg/dL (2.5-4.5); Potassium 4.2 mmol/L (3.5-5.1); Sodium 135 mmol/L (136-145)
[2023-07-20 10:33] LABS: Calcium 8.6 mg/dL (8.5-10.5)
[2023-07-20 10:38] LABS: Parathyroid Hormone 101.3 pg/mL (15-65)
== END 2023-07-20 09:38 | disposition home or self-care (01) ==
PROVIDERS: PCP Nurse Practitioner Family; Visit Provider Registered Nurse
DX: E55.9 Vitamin D deficiency, unspecified (principal); E87.6 Hypokalemia; N18.32 Chronic kidney disease, stage 3b
CPT/HCPCS: 36415; 80069; 82310; 83970; 85025

== ENCOUNTER → 2023-07-27 10:39 | Outpatient (BNVA) | payer MEDICAID, SELFPAY | PROVIDERS: PCP Nurse Practitioner Family; Visit Provider Orthopaedic Surgery | DX: Z98.1 Arthrodesis status (principal); Z47.89 Encounter for other orthopedic aftercare; M47.816 Spondylosis without myelopathy or radiculopathy, lumbar region; M48.062 Spinal stenosis, lumbar region with neurogenic claudication | CPT/HCPCS: 72100; 99024; 99213; 99214 ==

== ENCOUNTER → 2023-07-30 10:03 | Outpatient (BNVA) | payer MEDICAID, SELFPAY | PROVIDERS: PCP Nurse Practitioner Family; Visit Provider Internal Medicine Cardiovascular Disease | DX: R00.0 Tachycardia, unspecified (principal); I13.0 Hypertensive heart and chronic kidney disease with heart failure and stage 1 through stage 4 chronic kidney disease, or unspecified chronic kidney disease; I50.9 Heart failure, unspecified; N18.31 Chronic kidney disease, stage 3a; Z95.810 Presence of automatic (implantable) cardiac defibrillator; I42.8 Other cardiomyopathies; F17.210 Nicotine dependence, cigarettes, uncomplicated | CPT/HCPCS: 99214 ==

== ENCOUNTER → 2023-09-07 14:25 | Outpatient (BNVA) | payer MEDICAID, SELFPAY | PROVIDERS: PCP Nurse Practitioner Family; Visit Provider Orthopaedic Surgery | DX: Z98.1 Arthrodesis status (principal) | CPT/HCPCS: 72100; 99024 ==

== ENCOUNTER 2023-10-26 10:04 | Outpatient (CLI) | payer MEDICAID, SELFPAY ==
--- NOTE | 2023-10-26 10:09 | CT_ITS ---
WS: [id number] CT ABDOMEN AND PELVIS WITH AND WITHOUT CONTRAST HISTORY: TESTICULAR MASS TECHNIQUE: Unenhanced 5 mm axial imaging first performed through the abdomen and pelvis. Post contras t imaging through the abdomen and pelvis. Oral contrast has not been provided. Sagittal and coronal reformats are submitted. All CT scans at [facility] use at least one of these dose optimizati on techniques: automated exposure control; mA and/or kV adjustment per patient size (includes targete d exams where dose is matched to clinical indication); or iterative reconstruction. CONTRAST: Omnipaque 350; 95 mL IV. DLP: 1818.48 mGy.cm COMPARISON: None available. Lung bases are clear. Heart size is normal. Defibrillator wires in the RIGHT heart. No significant hi atal hernia. RIGHT kidney: Normal size kidney. Mild perinephric stranding with no obstruction. There is a too smal l to characterize cortical hypodensity measuring 4 mm in the mid kidney. No calcifications. No obstru ction. LEFT kidney: Normal size. There are several hypodensities in the renal cortex that are too small to c haracterize. Mild perinephric stranding. No calcification. Normal liver, gallbladder and spleen. No adrenal mass. Negative pancreas. Negative aorta. Stomach is nondistended. No small bowel obstruction. No colon obstruction. Appendix is not definitely identified. No ascites or adenopathy. Very tiny umbilical hernia contains fat only. Urinary bladder is well distended. Very minimal prostate gland enlargement and heterogeneity. Inguinal canals are neg ative. Prior lumbar fusion extends from L3-S1. IMPRESSION: 1. No retroperitoneal adenopathy. No ascites. 2. Bilateral renal, too small to characterize hypodensities and mild perinephric stranding. No obstr uction or calcification. 3. No pelvic mass or adenopathy.
--- NOTE | 2023-10-26 10:25 | US_ITS ---
WS: [id number] TESTICULAR ULTRASOUND HISTORY: TESTICULAR MASS COMPARISON: 07/09/2023 TECHNIQUE: Real-time and color Doppler imaging or utilized to perform a testicular ultrasound. Right testicle: 3.1 cm x 1.9 cm x 2.0 cm. Normal size and echogenicity. No mass or torsion. Recently described calcified mass in the RIGHT scro dominic is not identified today. Normal color Doppler is present throughout. Systolic and diastolic velocities are both present. No significant hydrocele. Right epididymis: Normal epididymis with no increased vascularity. Left testicle: 3.3 cm x 2.0 cm x 1.6 cm. Normal size. No mass. Mild heterogeneity. Normal color Doppler is present throughout. Systolic and diastolic velocities are both present. No significant hydrocele. Left epididymis: Normal epididymis with no increased vascularity. IMPRESSION: NORMAL TESTICULAR ULTRASOUND. Previously described calcified mass adjacent to the RIGHT testicle is not identified on today's exam.
--- NOTE | 2023-10-26 10:25 | XRR_ITS ---
PROCEDURE INFORMATION: Exam: XR Chest Exam date and time: 10/26/2023 10:44 AM Age: 48 years old Clinical indication: Condition or disease; Other: Testicular mass; Prior surgery; Surgery date: 6+ months; Surgery type: Pacemaker; Additional info: Testicular mass, PT having CT US too TECHNIQUE: Imaging protocol: Radiologic exam of the chest. Views: 2 views. COMPARISON: CT abdomen pelvis wo/w [id number] 10/26/2023 10:32 AM FINDINGS: Tubes, catheters and devices: Left pacemaker/AICD projects in satisfactory position. Lungs: Unremarkable. No consolidation. Pleural spaces: Unremarkable. No pleural effusion. No pneumothorax. Heart/Mediastinum: Unremarkable. No cardiomegaly. Bones/joints: Unremarkable. XR/XR chest 2V* [id number] IMPRESSION: No acute disease.
[2023-10-26] MEDS: iohexol 350 mg/mL 500 mL Btl (per mL) IV (10:43)
--- NOTE | 2023-10-26 11:51 | XRR_ITS ---
PROCEDURE INFORMATION: Exam: XR Lumbosacral Spine Exam date and time: 10/26/2023 11:55 AM Age: 48 years old Clinical indication: Pain; Dorslagia; Prior surgery; Surgery date: 6+ months; Surgery type: Pacemaker, l-spine fusion; Additional info: M54.9 - dorsalgia, unspecified TECHNIQUE: Imaging protocol: Radiologic exam of the lumbosacral spine. Views: 4 or 5 views. COMPARISON: CR XR lumbar spine 2-3V* [id number] 09/07/2023 2:42 PM FINDINGS: Bones/joints: Stable surgical changes. Unchanged surgical hardware projecting in satisfactory position. Unchanged mild scoliosis. Unchanged minimal L1-L2 and L2-L3 degenerative disc disease. Otherwise, unremarkable. Soft tissues: Unremarkable. XR/XR lumbar spine min 4V [id number] IMPRESSION: 1. No acute findings. 2. Additional details as above.
== END 2023-10-26 10:05 | disposition home or self-care (01) ==
PROVIDERS: PCP Nurse Practitioner Family; Visit Provider Urology
DX: M54.16 Radiculopathy, lumbar region (principal); M47.816 Spondylosis without myelopathy or radiculopathy, lumbar region; M48.062 Spinal stenosis, lumbar region with neurogenic claudication
CPT/HCPCS: 71046; 72110; 74178; 76870; 99214; Q9967

== ENCOUNTER → 2023-11-03 12:56 | Outpatient (BNVA) | payer MEDICAID, SELFPAY | PROVIDERS: PCP Nurse Practitioner Family; Visit Provider Anesthesiology Pain Medicine | DX: M79.18 Myalgia, other site (principal); M48.062 Spinal stenosis, lumbar region with neurogenic claudication; M47.816 Spondylosis without myelopathy or radiculopathy, lumbar region | CPT/HCPCS: 20553; 36415; 80048; 82105; 83615; 84702; 99214 ==

== ENCOUNTER 2023-12-27 19:41 | Emergency (ER) | payer MEDICARE, MEDICAID, SELFPAY ==
[2023-12-27 20:01] VITALS: BP 113/80; PULSE 85; RESP 16; TEMP 36.6; O2SAT 100
--- NOTE | 2023-12-27 21:50 | ED_ITS ---
HPI - Back Pain/Injury General: Chief Complaint: Back Pain/Injury Stated Complaint: Low back pain Time Seen by Provider: 12/27/23 21:14 Source: patient Mode of arrival: ambulatory Limitations: no limitations History of Present Illness: 48-year-old male presents had a history of back pain in the past he had surgery last year he states he started having some lower left back pain with shooting pain down his leg is felt like sciatica denies any bowel or bladder incontinence denies any injuries denies any midline pain he rates his pain a 6 out of 10 worse with movement and palpation Associated symptoms: Deny abdominal pain, chills, fever(s), nausea or vomiting Review of Systems Const: Denies: fever(s), chills, body aches or change in appetite ENMT: Denies: throat pain or dental pain Card: Denies: chest pain Resp: Denies: dyspnea GI: Denies: abdominal pain, nausea, vomiting or diarrhea : Denies: difficulty urinating Musc: Reports: back pain; Denies: neck pain Skin/Breast: Denies: rash PFSH ED PFSH: Medical History Tobacco dependence COPD (chronic obstructive pulmonary disease) Pulmonary arterial hypertension Immunocompromised state Staph skin infection Cardiac resynchronization therapy defibrillator (ELECTRONIC PREPRESS OPERATOR-D) in place PTSD (post-traumatic stress disorder) CKD (chronic kidney disease) CHF (congestive heart failure) HTN (hypertension) Anxiety Depression Sinus tachycardia Surgical History S/P placement of cardiac pacemaker S/P hemorrhoidectomy Family History Mother Diabetes Heart disease Hypertension Father Diabetes Heart disease Social History Smoking and tobacco/nicotine status: current some day tobacco/nicotine user cigarettes Alcohol intake: current Alcohol intake frequency: holidays/special occasions only Alcohol type: hard liquor Substance/Drug Use: never Physical Exam Const: COMMON NORMALS: no acute distress, patient oriented x3 and healthy appearing HENMT: COMMON NORMALS: normocephalic and atraumatic HEAD & SCALP: normocephalic and atraumatic Neck/C-Spine: COMMON NORMALS: full ROM and supple Chest: COMMONS NORMALS: normal inspection of the chest Resp: COMMON NORMALS: normal respiratory effort GI: COMMON NORMALS: Normal to inspection, nondistended, normoactive bowel sounds present, Soft to palpation, non-tender and no masses PALPATION: Yes Soft to palpation Back/Pelvis: OTHER: Tenderness to left lower back no midline tenderness no saddle esthesia Extremity: COMMON NORMALS: normal to inspection and full ROM Neuro: COMMON NORMALS: patient oriented x3, moves all extremities and no focal motor deficits Psych: COMMON NORMALS: mental status grossly normal, Normal thought process present and cooperative THOUGHT PROCESS: Normal thought process present Skin: COMMON NORMALS: no rashes or lesions noted and no wounds GENERAL SKIN EXAM: no rashes or lesions noted Course Vital Signs: Vital signs: Vital Signs Temperature 97.8 F 12/27/23 20:01 Pulse Rate 85 12/27/23 20:01 Respiratory Rate 16 12/27/23 20:01 Blood Pressure 113/80 12/27/23 20:01 Pulse Oximetry 100 12/27/23 20:01 Oxygen Delivery Me thod Room Air 12/27/23 20:01 MDM - Back Pain/Injury Medical Decision Making Patient presents here with low back pain likely sciatica no signs of cord compression or epidural abscess did give him pain meds we will place him on pain meds almost flex and he has follow-up with spine surgery Dr. Matamoros he states the next few weeks follow-up as scheduled return if worsening he understands agrees to plan No radiology studies performed this visit Discharge Plan Discharge Patient Disposition: Home Clinical Impression: Sciatica Low back pain Qualifiers: Chronicity: acute Back pain laterality: right Sciatica presence: with sciatica Condition: Stable Prescriptions: New hydrocodone-acetaminophen 5-325 mg tablet 1 tab PO Q6H PRN (Reason: pain) Qty: 14 0RF methocarbamol 750 mg tablet 750 mg PO Q6H PRN (Reason: spasms) Qty: 20 0RF No Action Rexulti 0.5 mg tablet 0.5 mg PO QAM mirtazapine 15 mg tablet 15 mg PO DAILY prazosin 2 mg capsule 2 mg PO BEDTIME allopurinol 100 mg tablet 100 mg PO QPM pantoprazole 40 mg tablet,delayed release (DR/EC) 40 mg PO BID citalopram 40 mg tablet 40 mg PO QAM furosemide 40 mg tablet 40 mg PO BID trazodone 300 mg tablet 300 mg PO BEDTIME aspirin [Adult Low Dose Aspirin] 81 mg tablet,delayed release (DR/EC) 162 mg PO QAM diazepam 5 mg tablet 5 mg PO Q8H PRN (Reason: Anxiety/spasms) Qty: 30 0RF tizanidine 4 mg tablet 8 mg PO TID PRN (Reason: muscle spasticity) Qty: 180 1RF potassium chloride 10 mEq capsule, extended release 10 meq PO DAILY albuterol sulfate 90 mcg/actuation HFA aerosol inhaler 2 puff inhalation Q6H PRN (Reason: shortness ofbreath) amlodipine 10 mg tablet 10 mg PO DAILY Qty: 90 5RF spironolactone 25 mg tablet 25 mg PO BID Qty: 180 6RF hydrocodone-acetaminophen 5-325 mg tablet 1 tab PO Q4H PRN (Reason: pain) 7 Days Qty: 40 0RF methylprednisolone acetate [Depo-Medrol] 40 mg/mL suspension 40 mg intra-articular ONCE Qty: 1 0RF bupivacaine (PF) 0.25 % (2.5 mg/mL) solution 9 ml intra-articular ONCE Qty: 1 0RF (DME) E0748 Bone Growth Stimulator See Rx Instructions .Route .MEDSUPPLY Qty: 1 0RF Rx Instructions: As directed oxycodone 5 mg tablet 5 mg PO Q4H PRN (Reason: pain) 7 Days Qty: 20 0RF levetiracetam 750 mg tablet See Rx Instructions .ROUTE .COMPLEX Qty: 60 3RF Dose Instruction: TAKE 1 TABLET BY MOUTH TWICE DAILY Rx Instructions: TAKE 1 TABLET BY MOUTH TWICE DAILY carvedilol 25 mg tablet 50 mg PO BID Qty: 360 1RF hydrocodone-acetaminophen 7.5-325 mg tablet 1 tab PO Q4H PRN (Reason: pain) 7 Days Qty: 40 0RF Narcan 4 mg/actuation spray,non-aerosol 4 mg intranasal Q2M PRN (Reason: opioid overdose) Qty: 2 0RF Rx Instructions: spray 1 dose into ONE nostril; gabapentin 800 mg Tablet 800 mg PO TID Discharge Orders: Discharge ED (Routine); Ordered 12/27/23 Ordered By: Nolan Bull Referrals: Arlet Hernandez NP [Primary Care Provider] - Discharge Diet: Advance as tolerated Discharge Activity: Resume usual activity Patient Instructions: Sciatica (ED), Back Pain (ED) Coding Level of Care Code ED Construction Sales Representative for Luis Reeder
[2023-12-27] MEDS: methocarbamol 750 mg Tablet 1500 MG PO (21:58)
[2023-12-27] MEDS: dexamethasone 10 mg/mL INJ IM (21:58)
[2023-12-27 21:59] VITALS: RESP 16
[2023-12-27] MEDS: morphine 4 mg/mL SDV 1 mL IM (21:59)
[2023-12-27 22:06] VITALS: BP 121/79; PULSE 79; RESP 16; O2SAT 99
== END 2023-12-27 22:12 | disposition home or self-care (01) ==
PROVIDERS: Emergency Provider Emergency Medicine; PCP Nurse Practitioner Family
DX: M54.41 Lumbago with sciatica, right side (principal); Z79.82 Long term (current) use of aspirin; F17.210 Nicotine dependence, cigarettes, uncomplicated; J44.9 Chronic obstructive pulmonary disease, unspecified; I13.0 Hypertensive heart and chronic kidney disease with heart failure and stage 1 through stage 4 chronic kidney disease, or unspecified chronic kidney disease; N18.9 Chronic kidney disease, unspecified; I50.9 Heart failure, unspecified; Z95.0 Presence of cardiac pacemaker
CPT/HCPCS: 96372; 99284; J1100; J2270

== ENCOUNTER → 2024-02-24 14:50 | Outpatient (BNVA) | payer MEDICARE, MEDICAID, SELFPAY | PROVIDERS: PCP Nurse Practitioner Family; Visit Provider Orthopaedic Surgery | DX: Z98.1 Arthrodesis status (principal); M54.16 Radiculopathy, lumbar region | CPT/HCPCS: 72100; 99213 ==

== ENCOUNTER → 2024-03-07 15:36 | Outpatient (BNVA) | payer MEDICARE, MEDICAID, SELFPAY | PROVIDERS: PCP Nurse Practitioner Family; Visit Provider Nurse Practitioner Family | DX: L98.1 Factitial dermatitis (principal); L81.0 Postinflammatory hyperpigmentation | CPT/HCPCS: 99213 ==

== ENCOUNTER → 2024-04-12 12:56 | Outpatient (BNVA) | payer MEDICARE, MEDICAID, SELFPAY | PROVIDERS: PCP Nurse Practitioner Family; Visit Provider Specialist | DX: G40.909 Epilepsy, unspecified, not intractable, without status epilepticus (principal); Z95.810 Presence of automatic (implantable) cardiac defibrillator; N18.31 Chronic kidney disease, stage 3a; M47.816 Spondylosis without myelopathy or radiculopathy, lumbar region; F17.210 Nicotine dependence, cigarettes, uncomplicated | CPT/HCPCS: 99214 ==

== ENCOUNTER 2024-04-27 15:31 | Emergency (ER) | payer MEDICARE, MEDICAID, SELFPAY ==
[2024-04-27 15:34] VITALS: BP 79/53; PULSE 81; RESP 16; TEMP 36.8; O2SAT 99; BMI 30.6
--- NOTE | 2024-04-27 15:41 | ECG_ITS ---
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 Measurements Intervals [place] Rate: 73 P: 20 [place]: 127 QRS: 173 QRSD: 157 T: 42 QT: 446 QTc: 495 Interpretive Statements ELECTRONIC VENTRICULAR PACEMAKER ? pseudo fusion beats ABNORMAL RHYTHM ECG No previous ECG available for comparison Electronically Signed On 04-27-2024 23:03:48 CDT by Uriel Romero M.D. [email or web address]
--- NOTE | 2024-04-27 15:46 | XRR_ITS ---
PROCEDURE INFORMATION: Exam: XR Chest Exam date and time: 04/27/2024 3:53 PM Age: 48 years old Clinical indication: Cough; Additional info: Dyspnea/cough TECHNIQUE: Imaging protocol: Radiologic exam of the chest. Views: 1 view. COMPARISON: CR XR chest 2V* [id number] 10/26/2023 10:44 AM FINDINGS: Tubes, catheters and devices: Stable left subclavian AICD with right atrial appendage and biventricular leads. Lungs: Left basilar atelectasis. No consolidation. Pleural spaces: Unremarkable. No pleural effusion. No pneumothorax. Heart/Mediastinum: Stable cardiomediastinal silhouette. Bones/joints: Unremarkable. XR/XR chest 1V portable [id number] IMPRESSION: No acute cardiopulmonary findings.
[2024-04-27 16:02] LABS: Eosinophils # 0.1 10^3/uL (0.0-0.8); Eosinophils % 3.4 %; Hematocrit 35.3 % (37-53); Lymphocytes # 1.4 10^3/uL (0.8-4.8); Lymphocytes % 34.9 %; Mean Corpuscular HGB Conc 33.4 g/dL (30-55); Mean Corpuscular Hemoglobin 31.1 pg (27-33); Mean Corpuscular Volume 93.1 fl (82-101); Mean Platelet Volume 11.9 fL (7.4-10.4); Monocytes # 0.3 10^3/uL (0.2-0.9); Monocytes % 8.3 %; Neutrophils # 2.15 10^3/uL (1.8-7.7); Neutrophils % 52.4 %; Nucleated Red Blood Cells % 0 %; Platelet Count 220 10^3/cmm (157-399); Red Blood Count 3.79 10^6/uL (3.85-5.65); Red Cell Distribution Width 13.6 % (12.1-15.1)
[2024-04-27 16:24] LABS: Lactic Sepsis W/Reflex 1.8 mmol/L (0.5-2.2)
[2024-04-27 16:35] LABS: Troponin(5th) Baseline 19 ng/L (0-15)
[2024-04-27 16:45] LABS: Alanine Aminotransferase 15 U/L (0-41); Albumin Level 4.1 g/dL (3.5-5.2); Alkaline Phosphatase 157 U/L (40-130); Anion Gap 16.6 (5-19); Aspartate Amino Transferase 17 U/L (0-40); Blood Urea Nitrogen 22 mg/dL (6-20); Calcium 7.9 mg/dL (8.5-10.5); Carbon Dioxide 24 mmol/L (22-29); Chloride 100 mmol/L (98-107); Creatinine Clr Calc Pharmacy 49.1619; Globulin 2.6 g/dL (1.3-4.6); Glomerular Filtration Rate 33.7 mL/min (90-130); Glucose 159 mg/dL (65-115); NT Pro B Type Natriuretic Pept 769 pg/mL (0-125); Osmolality Calculated 291 mOsm/kg (285-295); Potassium 3.6 mmol/L (3.5-5.1); Sodium 137 mmol/L (136-145); Total Bilirubin 0.8 mg/dL (0.15-1.2); Total Protein 6.7 g/dL (6.6-8.7)
--- NOTE | 2024-04-27 16:55 | ED_ITS ---
Documented by User: Tobi Lucia, 04/29/24 05:55 HPI - Syncope 2 General: Chief Complaint: Syncope Stated Complaint: near syncopal episode Time Seen by Provider: 04/27/24 15:37 History of Present Illness: 48-year-old male history of seizures pre sents after having 2 seizures today one earlier this morning and then another while he was at a local clinic. He is lethargic but arousable. He has a history of seizures and reports having multiple breakthrough seizures these months he recently seen his neurologist he had no medication changes he has not missed any medications. He is also on oxycodone he denies taking extra doses today. Denies any use of any other drugs or alcohol. Associated symptoms: Deny abdominal pain, chest pain or fever(s) Related Data Home Medications Medication Instructions Recorded Confirmed allopurinol 100 mg tablet 100 mg PO QPM 10/01/21 04/12/24 aspirin 81 mg tablet,delayed 162 mg PO QAM 10/01/21 04/12/24 release (Adult Low Dose Aspirin) brexpiprazole 0.5 mg tablet 0.5 mg PO QAM 10/01/21 04/12/24 (Rexulti) citalopram 40 mg tablet 40 mg PO QAM 10/01/21 04/12/24 furosemide 40 mg tablet 40 mg PO BID 10/01/21 04/12/24 mirtazapine 15 mg tablet 15 mg PO DAILY 10/01/21 04/12/24 pantoprazole 40 mg tablet,delayed 40 mg PO BID 10/01/21 04/12/24 release prazosin 2 mg capsule 2 mg PO BEDTIME 10/01/21 04/12/24 trazodone 300 mg tablet 300 mg PO BEDTIME 10/01/21 04/12/24 albuterol sulfate 90 mcg/actuation 2 puff inhalation Q6H PRN 12/16/22 04/12/24 aerosol inhaler shortness ofbreath gabapentin 800 mg tablet 800 mg PO TID 05/13/23 04/12/24 mirtazapine 30 mg tablet mg PO 04/12/24 04/12/24 mupirocin 2 % topical ointment topical 04/12/24 04/12/24 potassium chloride 20 mEq meq PO 04/12/24 04/12/24 tablet,extended release(part/cryst) tizanidine 4 mg capsule mg PO 04/12/24 04/12/24 varenicline 1 mg tablet mg PO 04/12/24 04/12/24 Previous Rx's Medication Instructions Recorded E0748 Bone Growth Stimulator #1 ea 02/26/23 diazepam 5 mg tablet 5 mg PO Q8H PRN Anxiety/spasms #30 05/20/23 tabs naloxone 4 mg/actuation nasal 4 mg intranasal Q2M PRN opioid 06/07/23 spray (Narcan) overdose #2 ea amlodipine 10 mg tablet 10 mg PO DAILY #90 tabs 02/07/24 carvedilol 25 mg tablet 50 mg (2 x 25 mg) PO BID #360 tabs 02/07/24 spironolactone 25 mg tablet 25 mg PO BID #180 tabs 02/07/24 methocarbamol 750 mg tablet 750 mg PO Q6H PRN spasms #20 tabs 02/24/24 oxycodone 5 mg tablet 5 mg PO Q4H PRN pain 7 days #20 02/24/24 tabs levetiracetam 750 mg tablet See Rx Instructions .Route 04/12/24 .COMPLEX #180 tabs Allergies Allergy/AdvReac Type Severity Reaction Status Date / Time No Known Allergies Allergy Verified 04/12/24 13:41 Review of Systems 2 Const: Denies: fever(s) or chills Card: Denies: chest pain Resp: Denies: dyspnea GI: Denies: abdominal pain : Denies: dysuria, urinary frequency or urinary urgency Musc: Denies: neck pain or back pain Skin/Breast: Denies: rash Neuro: Reports: confusion PFSH ED 2 PFSH: Medical History Tobacco dependence COPD (chronic obstructive pulmonary disease) Pulmonary arterial hypertension Immunocompromised state Staph skin infection Cardiac resynchronization therapy defibrillator ([employer]CHNICIAN-D) in place PTSD (post-traumatic stress disorder) CKD (chronic kidney disease) CHF (congestive heart failure) HTN (hypertension) Anxiety Depression Sinus tachycardia Surgical History S/P placement of cardiac pacemaker S/P hemorrhoidectomy Family History Mother Diabetes Heart disease Hypertension Father Diabetes Heart disease Social History Smoking and tobacco/nicotine status: current every day tobacco/nicotine user (07/08 PPD) cigarettes Alcohol intake: current Alcohol intake frequency: holidays/special occasions only Alcohol type: hard liquor Substance/Drug Use: never Physical Exam 2 Const: COMMON NORMALS: no acute distress GENERAL APPEARANCE: cooperative, comfortable and lethargic ORIENTATION/CONSCIOUSNESS: Yes awake and Yes lethargic HENMT: COMMON NORMALS: normocephalic, atraumatic and hearing grossly normal bilaterally HEAD & SCALP: normocephalic and atraumatic Resp: COMMON NORMALS: normal respiratory effort, No retractions, No use of accessory muscles and clear to auscultation bilaterally AUSCULTATION: clear to auscultation bilaterally Cardio: COMMON NORMALS: regular rate, regular rhythm and No murmurs present (Cardio) RATE: regular rate RHYTHM: regular rhythm GI: COMMON NORMALS: Soft to palpation and No hepatosplenomegaly present A USCULTATION: Yes normoactive bowel sounds PALPATION: Yes Soft to palpation, No Tenderness to palpation present (GI), No Guarding due to palpation present (GI) and Yes No hepatosplenomegaly present Extremity: COMMON NORMALS: normal to inspection, capillary refill normal, no clubbing, cyanosis or edema, no calf tenderness and no pedal edema Neuro: SENSORIUM/ORIENTATION: Yes lethargic Skin: COMMON NORMALS: no rashes or lesions noted GENERAL SKIN EXAM: no rashes or lesions noted Course 2 Vital Signs: Vital signs: Vital Signs Temperature 98.3 F 04/27/24 15:34 Pulse Rate 86 04/27/24 19:41 Respiratory Rate 18 04/27/24 19:41 Blood Pressure 135/99 04/27/24 19:41 Pulse Oximetry 96 04/27/24 19:41 Oxygen Delivery Me thod Room Air 04/27/24 18:30 MDM - Syncope Medical Decision Making Patient presents he is initially moderately lethargic believe he is postictal after having had a seizure. He does have chronic kidney disease his creatinine and BUN are slightly elevated from his baseline. He is on Lasix. He was given a liter normal saline other lab testing is pending care signed out to Dr. Carter at change of shift. See final notes for diagnosis and disposition. Patient here postictal after having a seizure. Patient does have CKD and is on Lasix. BUN/creatinine is slightly elevated 22 and 2.5. Patient given 1 L normal saline here in ER. Patient is requesting to go home and be discharged. He said he feels much better. Patient be discharged home. Medical Records I reviewed the patient's medical records. Lab Data I reviewed the patient's lab results. 04/27/24 15:50 04/27/24 15:50 Radiology Impressions Chest X-Ray 04/27/24 15:46 IMPRESSION: No acute cardiopulmonary findings. Laboratory Results WBC 4.10 10^3/uL (3.29-11.43) 04/27/24 15:50 RBC 3.79 10^6/uL (3.85-5.65) L 04/27/24 15:50 Hgb 11.80 g/dL (11.27-16.99) 04/27/24 15:50 Hct 35.3 % (37-53) L 04/27/24 15:50 MCV 93.1 fl (82-101) 04/27/24 15:50 MCH 31.1 pg (27-33) 04/27/24 15:50 MCHC 33.4 g/dL (30-55) 04/27/24 15:50 RDW 13.6 % (12.1-15.1) 04/27/24 15:50 Plt Count 220 10^3/cmm (157-399) 04/27/24 15:50 MPV 11.9 fL (7.4-10.4) H 04/27/24 15:50 Neut % (Auto) 52.4 % 04/27/24 15:50 Lymph % (Auto) 34.9 % 04/27/24 15:50 Coos % (Auto) 8.3 % 04/27/24 15:50 Eos % (Auto) 3.4 % 04/27/24 15:50 Baso % (Auto) 1.0 % 04/27/24 15:50 Neut # (Auto) 2.15 10^3/uL (1.8-7.7) 04/27/24 15:50 Lymph # (Auto) 1.4 10^3/uL (0.8-4.8) 04/27/24 15:50 Coos # (Auto) 0.3 10^3/uL (0.2-0.9) 04/27/24 15:50 Eos # (Auto) 0.1 10^3/uL (0.0-0.8) 04/27/24 15:50 Baso # (Auto) 0.0 10^3/uL (0.0-0.1) 04/27/24 15:50 Nucleated RBC % (auto) 0 % 04/27/24 15:50 Nucleated RBCs # 0.0 /100WBC 04/27/24 15:50 Sodium 137 mmol/L (136-145) 04/27/24 15:50 Potassium 3.6 mmol/L (3.5-5.1) 04/27/24 15:50 Chloride 100 mmol/L (98-107) 04/27/24 15:50 Carbon Dioxide 24 mmol/L (22-29) 04/27/24 15:50 Anion Gap 16.6 (5-19) 04/27/24 15:50 BUN 22 mg/dL (6-20) H 04/27/24 15:50 Creatinine 2.5 mg/dL (0.7-1.2) H 04/27/24 15:50 GFR Calculation 33.7 mL/min (90-130) L 04/27/24 15:50 Glucose 159 mg/dL (65-115) H 04/27/24 15:50 Calculated Osmolality 291 mOsm/kg (285-295) 04/27/24 15:50 Lactic Acid 1.8 mmol/L (0.5-2.2) 04/27/24 15:50 Calcium 7.9 mg/dL (8.5-10.5) L 04/27/24 15:50 Total Bilirubin 0.8 mg/dL (0.15-1.2) 04/27/24 15:50 AST 17 U/L (0-40) 04/27/24 15:50 ALT 15 U/L (0-41) 04/27/24 15:50 Alkaline Phosphatase 157 U/L (40-130) H 04/27/24 15:50 Troponin T Baseline 19 ng/L (0-15) H 04/27/24 15:50 Troponin T 120 Minute 18.61 ng/L (0-15) H 04/27/24 18:12 Delta Troponin T -0.39 ABS# (0-10) L 04/27/24 18:12 NT-Pro-B Natriuret Pep 769 pg/mL (0-125) H 04/27/24 15:50 Total Protein 6.7 g/dL (6.6-8.7) 04/27/24 15:50 Albumin 4.1 g/dL (3.5-5.2) 04/27/24 15:50 Globulin 2.6 g/dL (1.3-4.6) 04/27/24 15:50 Levetiracetam 7.7 mcg/mL (6.0-46.0) 04/27/24 15:50 Discharge Plan Discharge Patient Disposition: Home Clinical Impression: Seizure CKD (chronic kidney disease) Qualifiers: Chronic kidney disease stage: stage 3 (moderate) Chronic kidney disease stage 3 subtype: stage 3a (GFR 45-59) Qualified Code(s): N18.31 - Chronic kidney disease, stage 3a Condition: Stable Prescriptions: No Action Rexulti 0.5 mg tablet 0.5 mg PO QAM mirtazapine 15 mg tablet 15 mg PO DAILY prazosin 2 mg capsule 2 mg PO BEDTIME allopurinol 100 mg tablet 100 mg PO QPM pantoprazole 40 mg tablet,delayed release (DR/EC) 40 mg PO BID citalopram 40 mg tablet 40 mg PO QAM furosemide 40 mg tablet 40 mg PO BID trazodone 300 mg tablet 300 mg PO BEDTIME aspirin [Adult Low Dose Aspirin] 81 mg tablet,delayed release (DR/EC) 162 mg PO QAM diazepam 5 mg tablet 5 mg PO Q8H PRN (Reason: Anxiety/spasms) Qty: 30 0RF methocarbamol 750 mg tablet 750 mg PO Q6H PRN (Reason: spasms) Qty: 20 0RF oxycodone 5 mg tablet 5 mg PO Q4H PRN (Reason: pain) 7 Days Qty: 20 0RF albuterol sulfate 90 mcg/actuation HFA aerosol inhaler 2 puff inhalation Q6H PRN (Reason: shortness ofbreath) methylprednisolone acetate [Depo-Medrol] 40 mg/mL suspension 40 mg intra-articular ONCE Qty: 1 0RF bupivacaine (PF) 0.25 % (2.5 mg/mL) solution 9 ml intra-articular ONCE Qty: 1 0RF potassium chloride 20 mEq tablet,ER particles/crystals PO mirtazapine 30 mg tablet PO mupirocin 2 % ointment topical tizanidine 4 mg capsule PO varenicline 1 mg tablet PO levetiracetam 750 mg tablet See Rx Instructions .ROUTE .COMPLEX Qty: 180 3RF Dose Instruction: TAKE 1 TABLET BY MOUTH TWICE DAILY Rx Instructions: TAKE 1 TABLET BY MOUTH TWICE DAILY (DME) E0748 Bone Growth Stimulator See Rx Instructions .Route .MEDSUPPLY Qty: 1 0RF Rx Instructions: As directed carvedilol 25 mg tablet 50 mg PO BID Qty: 360 2RF amlodipine 10 mg tablet 10 mg PO DAILY Qty: 90 2RF spironolactone 25 mg tablet 25 mg PO BID Qty: 180 2RF Narcan 4 mg/actuation spray,non-aerosol 4 mg intranasal Q2M PRN (Reason: opioid overdose) Qty: 2 0RF Rx Instructions: spray 1 dose into ONE nostril; gabapentin 800 mg Tablet 800 mg PO TID Discharge Orders: Discharge ED (Routine); Ordered 04/27/24 Ordered By: Glynn Carter Referrals: Arlet Hernandez, BENJAMIN [Primary Care Provider] - 1 week Patient Instructions: Seizures Activity Restrictions/Additional Instructions: Thank you for choosing [facility] for your healthcare needs today. Please realize that you were seen in the emergency department and that we are providing you with an emergency medical screening exam and this may not be a complete and all exclusive of all testing and/or medical workup we may need to determine your element or severity of your illness. It is very important that you follow-up as instructed with your primary care provider or specialist for the additional evaluation and to discuss your medical treatment plan. You may return to the emergency department should you have concerns or if your condition changes or worsens in any way. Coding Level of Care Code ED Distribution [facility] Assistant for Luis Fwd Documented by User: Glynn Carter 04/27/24 22:07 HPI - Syncope 2 General: Chief Complaint: Syncope Stated Complaint: near syncopal episode Time Seen by Provider: 04/27/24 15:37 History of Present Illness: Patient presents to the ER postictal after having a seizure. Patient does have a history of seizures. Patient does appear lethargic and postictal. Patient is able to answer questions appropriately. Related Data Home Medications Medication Instructions Recorded Confirmed allopurinol 100 mg tablet 100 mg PO QPM 10/01/21 04/12/24 aspirin 81 mg tablet,delayed 162 mg PO QAM 10/01/21 04/12/24 release (Adult Low Dose Aspirin) brexpiprazole 0.5 mg tablet 0.5 mg PO QAM 10/01/21 04/12/24 (Rexulti) citalopram 40 mg tablet 40 mg PO QAM 10/01/21 04/12/24 furosemide 40 mg tablet 40 mg PO BID 10/01/21 04/12/24 mirtazapine 15 mg tablet 15 mg PO DAILY 10/01/21 04/12/24 pantoprazole 40 mg tablet,delayed 40 mg PO BID 10/01/21 04/12/24 release prazosin 2 mg capsule 2 mg PO BEDTIME 10/01/21 04/12/24 trazodone 300 mg tablet 300 mg PO BEDTIME 10/01/21 04/12/24 albuterol sulfate 90 mcg/actuation 2 puff inhalation Q6H PRN 12/16/22 04/12/24 aerosol inhaler shortness ofbreath gabapentin 800 mg tablet 800 mg PO TID 05/13/23 04/12/24 mirtazapine 30 mg tablet mg PO 04/12/24 04/12/24 mupirocin 2 % topical ointment topical 04/12/24 04/12/24 potassium chloride 20 mEq meq PO 04/12/24 04/12/24 tablet,extended release(part/cryst) tizanidine 4 mg capsule mg PO 04/12/24 04/12/24 varenicline 1 mg tablet mg PO 04/12/24 04/12/24 Previous Rx's Medication Instructions Recorded E0748 Bone Growth Stimulator #1 ea 02/26/23 diazepam 5 mg tablet 5 mg PO Q8H PRN Anxiety/spasms #30 05/20/23 tabs naloxone 4 mg/actuation nasal 4 mg intranasal Q2M PRN opioid 06/07/23 spray (Narcan) overdose #2 ea amlodipine 10 mg tablet 10 mg PO DAILY #90 tabs 02/07/24 carvedilol 25 mg tablet 50 mg (2 x 25 mg) PO BID #360 tabs 02/07/24 spironolactone 25 mg tablet 25 mg PO BID #180 tabs 02/07/24 methocarbamol 750 mg tablet 750 mg PO Q6H PRN spasms #20 tabs 02/24/24 oxycodone 5 mg tablet 5 mg PO Q4H PRN pain 7 days #20 02/24/24 tabs levetiracetam 750 mg tablet See Rx Instructions .Route 04/12/24 .COMPLEX #180 tabs Allergies Allergy/AdvReac Type Severity Reaction Status Date / Time No Known Allergies Allergy Verified 04/12/24 13:41 Review of Systems 2 General: Reports: 10 or more systems reviewed and unremarkable except in HPI and below PFSH ED 2 PFSH: Medical History Tobacco dependence COPD (chronic obstructive pulmonary disease) Pulmonary arterial hypertension Immunocompromised state Staph skin infection Cardiac resynchronization therapy defibrillator ([employer]CHNICIAN-D) in place PTSD (post-traumatic stress disorder) CKD (chronic kidney disease) CHF (congestive heart failure) HTN (hypertension) Anxiety Depression Sinus tachycardia Surgical History S/P placement of cardiac pacemaker S/P hemorrhoidectomy Family History Mother Diabetes Heart disease Hypertension Father Diabetes Heart disease Social History Smoking and tobacco/nicotine status: current every day tobacco/nicotine user (07/08 PPD) cigarettes Alcohol intake: current Alcohol intake frequency: holidays/special occasions only Alcohol type: hard liquor Substance/Drug Use: never Physical Exam 2 Const: COMMON NORMALS: no acute distress, average body habitus, patient oriented x3, no limitations, healthy appearing, alert and well nourished HENMT: COMMON NORMALS: normocephalic, atraumatic, hearing grossly normal bilaterally, external ears normal, Normal external nose present and moist oral mucous membranes HEAD & SCALP: normocephalic and atraumatic NOSE: Normal external nose present EXTERNAL EAR: Yes external ears normal Neck/C-Spine: COMMON NORMALS: full ROM, no lymphadenopathy, no meningeal signs, no JVD and Thyroid normal THYROID: Thyroid normal Chest: COMMONS NORMALS: normal inspection of the chest and normal palpation of entire chest wall Resp: COMMON NORMALS: normal respiratory effort, No retractions, No use of accessory muscles and clear to auscultation bilaterally AUSCULTATION: clear to auscultation bilaterally Cardio: COMMON NORMALS: no JVD, regular rate, regular rhythm, S1 normal heart sound present, S2 normal heart sound present, No gallops present (Cardio), No clicks present (Cardio), No murmurs present (Cardio) and No rub (Cardio) R ATE: regular rate RHYTHM: regular rhythm HEART SOUNDS: S1 normal heart sound present and S2 normal heart sound present GI: COMMON NORMALS: Normal to inspection, nondistended, normoactive bowel sounds present, Soft to palpation, non-tender, No hepatosplenomegaly present and no masses PALPATION: Yes Soft to palpation and Yes No hepatosplenomegaly present Neuro: COMMON NORMALS: patient oriented x3 SENSORIUM/ORIENTATION: Yes alert MENINGEAL SIGNS: Yes no meningeal signs Course 2 Vital Signs: Vital signs: Vital Signs Temperature 98.3 F 04/27/24 15:34 Pulse Rate 86 04/27/24 19:41 Respiratory Rate 18 04/27/24 19:41 Blood Pressure 135/99 04/27/24 19:41 Pulse Oximetry 96 04/27/24 19:41 Oxygen Delivery Me thod Room Air 04/27/24 18:30 MDM - Syncope Medical Decision Making Patient here postictal after having a seizure. Patient does have CKD and is on Lasix. BUN/creatinine is slightly elevated 22 and 2.5. Patient given 1 L normal saline here in ER. Patient is requesting to go home and be discharged. He said he feels much better. Patient be discharged home. Lab Data 04/27/24 15:50 04/27/24 15:50 Radiology Impressions Chest X-Ray 04/27/24 15:46 IMPRESSION: No acute cardiopulmonary findings. Laboratory Results WBC 4.10 10^3/uL (3.29-11.43) 04/27/24 15:50 RBC 3.79 10^6/uL (3.85-5.65) L 04/27/24 15:50 Hgb 11.80 g/dL (11.27-16.99) 04/27/24 15:50 Hct 35.3 % (37-53) L 04/27/24 15:50 MCV 93.1 fl (82-101) 04/27/24 15:50 MCH 31.1 pg (27-33) 04/27/24 15:50 MCHC 33.4 g/dL (30-55) 04/27/24 15:50 RDW 13.6 % (12.1-15.1) 04/27/24 15:50 Plt Count 220 10^3/cmm (157-399) 04/27/24 15:50 MPV 11.9 fL (7.4-10.4) H 04/27/24 15:50 Neut % (Auto) 52.4 % 04/27/24 15:50 Lymph % (Auto) 34.9 % 04/27/24 15:50 Coos % (Auto) 8.3 % 04/27/24 15:50 Eos % (Auto) 3.4 % 04/27/24 15:50 Baso % (Auto) 1.0 % 04/27/24 15:50 Neut # (Auto) 2.15 10^3/uL (1.8-7.7) 04/27/24 15:50 Lymph # (Auto) 1.4 10^3/uL (0.8-4.8) 04/27/24 15:50 Coos # (Auto) 0.3 10^3/uL (0.2-0.9) 04/27/24 15:50 Eos # (Auto) 0.1 10^3/uL (0.0-0.8) 04/27/24 15:50 Baso # (Auto) 0.0 10^3/uL (0.0-0.1) 04/27/24 15:50 Nucleated RBC % (auto) 0 % 04/27/24 15:50 Nucleated RBCs # 0.0 /100WBC 04/27/24 15:50 Sodium 137 mmol/L (136-145) 04/27/24 15:50 Potassium 3.6 mmol/L (3.5-5.1) 04/27/24 15:50 Chloride 100 mmol/L (98-107) 04/27/24 15:50 Carbon Dioxide 24 mmol/L (22-29) 04/27/24 15:50 Anion Gap 16.6 (5-19) 04/27/24 15:50 BUN 22 mg/dL (6-20) H 04/27/24 15:50 Creatinine 2.5 mg/dL (0.7-1.2) H 04/27/24 15:50 GFR Calculation 33.7 mL/min (90-130) L 04/27/24 15:50 Glucose 159 mg/dL (65-115) H 04/27/24 15:50 Calculated Osmolality 291 mOsm/kg (285-295) 04/27/24 15:50 Lactic Acid 1.8 mmol/L (0.5-2.2) 04/27/24 15:50 Calcium 7.9 mg/dL (8.5-10.5) L 04/27/24 15:50 Total Bilirubin 0.8 mg/dL (0.15-1.2) 04/27/24 15:50 AST 17 U/L (0-40) 04/27/24 15:50 ALT 15 U/L (0-41) 04/27/24 15:50 Alkaline Phosphatase 157 U/L (40-130) H 04/27/24 15:50 Troponin T Baseline 19 ng/L (0-15) H 04/27/24 15:50 Troponin T 120 Minute 18.61 ng/L (0-15) H 04/27/24 18:12 Delta Troponin T -0.39 ABS# (0-10) L 04/27/24 18:12 NT-Pro-B Natriuret Pep 769 pg/mL (0-125) H 04/27/24 15:50 Total Protein 6.7 g/dL (6.6-8.7) 04/27/24 15:50 Albumin 4.1 g/dL (3.5-5.2) 04/27/24 15:50 Globulin 2.6 g/dL (1.3-4.6) 04/27/24 15:50 Levetiracetam 7.7 mcg/mL (6.0-46.0) 04/27/24 15:50 All radiology interpretation(s) finalized by discharge Discharge Plan Discharge Patient Disposition: Home Clinical Impression: Seizure CKD (chronic kidney disease) Qualifiers: Chronic kidney disease stage: stage 3 (moderate) Chronic kidney disease stage 3 subtype: stage 3a (GFR 45-59) Qualified Code(s): N18.31 - Chronic kidney disease, stage 3a Condition: Stable Prescriptions: No Action Rexulti 0.5 mg tablet 0.5 mg PO QAM mirtazapine 15 mg tablet 15 mg PO DAILY prazosin 2 mg capsule 2 mg PO BEDTIME allopurinol 100 mg tablet 100 mg PO QPM pantoprazole 40 mg tablet,delayed release (DR/EC) 40 mg PO BID citalopram 40 mg tablet 40 mg PO QAM furosemide 40 mg tablet 40 mg PO BID trazodone 300 mg tablet 300 mg PO BEDTIME aspirin [Adult Low Dose Aspirin] 81 mg tablet,delayed release (DR/EC) 162 mg PO QAM diazepam 5 mg tablet 5 mg PO Q8H PRN (Reason: Anxiety/spasms) Qty: 30 0RF methocarbamol 750 mg tablet 750 mg PO Q6H PRN (Reason: spasms) Qty: 20 0RF oxycodone 5 mg tablet 5 mg PO Q4H PRN (Reason: pain) 7 Days Qty: 20 0RF albuterol sulfate 90 mcg/actuation HFA aerosol inhaler 2 puff inhalation Q6H PRN (Reason: shortness ofbreath) methylprednisolone acetate [Depo-Medrol] 40 mg/mL suspension 40 mg intra-articular ONCE Qty: 1 0RF bupivacaine (PF) 0.25 % (2.5 mg/mL) solution 9 ml intra-articular ONCE Qty: 1 0RF potassium chloride 20 mEq tablet,ER particles/crystals PO mirtazapine 30 mg tablet PO mupirocin 2 % ointment topical tizanidine 4 mg capsule PO varenicline 1 mg tablet PO levetiracetam 750 mg tablet See Rx Instructions .ROUTE .COMPLEX Qty: 180 3RF Dose Instruction: TAKE 1 TABLET BY MOUTH TWICE DAILY Rx Instructions: TAKE 1 TABLET BY MOUTH TWICE DAILY (DME) E0748 Bone Growth Stimulator See Rx Instructions .Route .MEDSUPPLY Qty: 1 0RF Rx Instructions: As directed carvedilol 25 mg tablet 50 mg PO BID Qty: 360 2RF amlodipine 10 mg tablet 10 mg PO DAILY Qty: 90 2RF spironolactone 25 mg tablet 25 mg PO BID Qty: 180 2RF Narcan 4 mg/actuation spray,non-aerosol 4 mg intranasal Q2M PRN (Reason: opioid overdose) Qty: 2 0RF Rx Instructions: spray 1 dose into ONE nostril; gabapentin 800 mg Tablet 800 mg PO TID Discharge Orders: Discharge ED (Routine); Ordered 04/27/24 Ordered By: Glynn Carter Referrals: Arlet Hernandez NP [Primary Care Provider] - 1 week Patient Instructions: Seizures Activity Restrictions/Additional Instructions: Thank you for choosing [facility] for your healthcare needs today. Please realize that you were seen in the emergency department and that we are providing you with an emergency medical screening exam and this may not be a complete and all exclusive of all testing and/or medical workup we may need to determine your element or severity of your illness. It is very important that you follow-up as instructed with your primary care provider or specialist for the additional evaluation and to discuss your medical treatment plan. You may return to the emergency department should you have concerns or if your condition changes or worsens in any way. Coding Level of Care Code ED Distribution [facility] Assistant for Luis Reeder
[2024-04-27 17:00] VITALS: BP 113/68; PULSE 72; O2SAT 97
--- NOTE | 2024-04-27 18:01 | ECG_ITS ---
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 Measurements Intervals Blanding Rate: 66 P: 13 GA: 143 QRS: 154 QRSD: 163 T: 28 QT: 481 QTc: 505 Interpretive Statements ELECTRONIC VENTRICULAR PACEMAKER-pseudo fusion beats- check the pacemaker ABNORMAL RHYTHM ECG Compared to ECG 04/27/2024 15:41:53 No significant changes Electronically Signed On 04-27-2024 23:14:00 CDT by Uriel Romero M.D. [email or web address]
[2024-04-27] MEDS: sodium chloride 0.9% 1,000 ML 999 ML IV (18:03)
[2024-04-27 18:30] VITALS: BP 128/95; PULSE 77; O2SAT 93
[2024-04-27 18:43] LABS: Troponin 5 2HR 18.61 ng/L (0-15)
[2024-04-27 18:47] LABS: Troponin 5 2HR Delta -0.39 ABS# (0-10)
[2024-04-27 19:00] VITALS: BP 136/102; PULSE 67; O2SAT 92
[2024-04-27 19:41] VITALS: BP 135/99; PULSE 86; RESP 18; O2SAT 96
[2024-04-28 10:50] LABS: Levetiracetam Immunoassy 7.7 mcg/mL (6.0-46.0)
== END 2024-04-27 19:44 | disposition home or self-care (01) ==
PROVIDERS: Emergency Provider Family Medicine; PCP Nurse Practitioner Family
DX: R56.9 Unspecified convulsions (principal); N18.31 Chronic kidney disease, stage 3a; Z79.899 Other long term (current) drug therapy
CPT/HCPCS: 36415; 71045; 80053; 80177; 83605; 83880; 84484; 85025; 93005; 99285; J7030

== ENCOUNTER → 2024-09-06 08:52 | Outpatient (BNVA) | payer MEDICARE, MEDICAID, SELFPAY | PROVIDERS: PCP Nurse Practitioner Family; Visit Provider Nurse Practitioner Family | DX: M48.062 Spinal stenosis, lumbar region with neurogenic claudication (principal); M54.16 Radiculopathy, lumbar region; Z98.1 Arthrodesis status; M47.816 Spondylosis without myelopathy or radiculopathy, lumbar region; F17.210 Nicotine dependence, cigarettes, uncomplicated | CPT/HCPCS: 99213 ==

== ENCOUNTER → 2024-09-12 08:03 | Outpatient (BNVA) | payer MEDICARE, MEDICAID, SELFPAY | PROVIDERS: PCP Nurse Practitioner Family; Visit Provider Orthopaedic Surgery | DX: M54.50 Low back pain, unspecified (principal); Z98.1 Arthrodesis status; M54.16 Radiculopathy, lumbar region | CPT/HCPCS: 72110; 99213 ==

== ENCOUNTER → 2024-10-23 09:43 | Outpatient (BNVA) | payer MEDICARE, MEDICAID, SELFPAY | PROVIDERS: PCP Nurse Practitioner Family; Visit Provider Nurse Practitioner Family | DX: M48.062 Spinal stenosis, lumbar region with neurogenic claudication (principal); M54.16 Radiculopathy, lumbar region; Z98.1 Arthrodesis status; F17.210 Nicotine dependence, cigarettes, uncomplicated | CPT/HCPCS: 99213 ==

== ENCOUNTER → 2024-12-12 07:47 | Outpatient (BNVA) | payer MEDICARE, BC, MEDICAID, SELFPAY | PROVIDERS: PCP Nurse Practitioner Family; Visit Provider Orthopaedic Surgery | DX: Z98.1 Arthrodesis status (principal) | CPT/HCPCS: 99213 ==

== ENCOUNTER → 2024-12-21 11:01 | Outpatient (BNVA) | payer MEDICARE, BC, MEDICAID, SELFPAY | PROVIDERS: PCP Nurse Practitioner Family; Visit Provider Orthopaedic Surgery | DX: M25.531 Pain in right wrist (principal); M65.4 Radial styloid tenosynovitis [de Quervain] | CPT/HCPCS: 73110; 99204 ==

== ENCOUNTER → 2024-12-25 14:34 | Outpatient (BNVA) | payer MEDICARE, BC, MEDICAID, SELFPAY | PROVIDERS: PCP Nurse Practitioner Family; Visit Provider Nurse Practitioner Family | DX: M79.18 Myalgia, other site (principal); M48.062 Spinal stenosis, lumbar region with neurogenic claudication; M54.16 Radiculopathy, lumbar region; Z98.1 Arthrodesis status; M47.816 Spondylosis without myelopathy or radiculopathy, lumbar region | CPT/HCPCS: 20553; 99214; J1010; J3490 ==

== ENCOUNTER → 2025-01-15 09:01 | Outpatient (BNVA) | payer OTHER, MEDICAID, SELFPAY | PROVIDERS: PCP Nurse Practitioner Family; Visit Provider Nurse Practitioner Family | DX: M48.062 Spinal stenosis, lumbar region with neurogenic claudication (principal); M54.16 Radiculopathy, lumbar region; Z98.1 Arthrodesis status; M47.816 Spondylosis without myelopathy or radiculopathy, lumbar region | CPT/HCPCS: 99214 ==

== ENCOUNTER 2025-01-16 10:48 | Outpatient (CLI) | payer OTHER, MEDICAID, SELFPAY ==
[2025-01-16 11:31] LABS: Hematocrit 41.7 % (37-53); Hemoglobin 14.20 g/dL (11.27-16.99); Mean Corpuscular HGB Conc 34.1 g/dL (30-55); Mean Corpuscular Hemoglobin 32.0 pg (27-33); Mean Corpuscular Volume 93.9 fl (82-101); Nucleated Red Blood Cells % 0 %; Platelet Count 184 10^3/cmm (157-399); Red Blood Count 4.44 10^6/uL (3.85-5.65); White Blood Count 5.01 10^3/uL (3.29-11.43)
[2025-01-16 11:50] LABS: Albumin Level 3.8 g/dL (3.5-5.2); Anion Gap 15.4 (5-19); Blood Urea Nitrogen 9 mg/dL (6-20); Calcium 8.9 mg/dL (8.5-10.5); Carbon Dioxide 26 mmol/L (22-29); Chloride 97 mmol/L (98-107); Glucose 103 mg/dL (65-115); Potassium 4.4 mmol/L (3.5-5.1); Sodium 134 mmol/L (136-145)
== END 2025-01-16 10:49 | disposition home or self-care (01) ==
LOC: LAB 10:52
PROVIDERS: PCP Nurse Practitioner Family; Visit Provider Internal Medicine Nephrology
DX: N18.2 Chronic kidney disease, stage 2 (mild) (principal)
CPT/HCPCS: 36415; 80069; 85025

== ENCOUNTER → 2025-02-08 13:08 | Outpatient (BNVA) | payer MEDICARE, MEDICAID, SELFPAY | PROVIDERS: PCP Nurse Practitioner Family; Visit Provider Nurse Practitioner Family | DX: L98.1 Factitial dermatitis (principal); L81.0 Postinflammatory hyperpigmentation; L30.9 Dermatitis, unspecified | CPT/HCPCS: 11104; 99213 ==

== ENCOUNTER → 2025-02-13 12:51 | Outpatient (BNVA) | payer MEDICARE, MEDICAID, SELFPAY | PROVIDERS: PCP Nurse Practitioner Family; Visit Provider Nurse Practitioner Family | DX: M48.062 Spinal stenosis, lumbar region with neurogenic claudication (principal); M54.16 Radiculopathy, lumbar region; Z98.1 Arthrodesis status; M47.816 Spondylosis without myelopathy or radiculopathy, lumbar region; F17.210 Nicotine dependence, cigarettes, uncomplicated | CPT/HCPCS: 99214 ==

== ENCOUNTER → 2025-02-14 15:11 | Outpatient (BNVA) | payer MEDICARE, MEDICAID, SELFPAY | PROVIDERS: PCP Nurse Practitioner Family; Visit Provider Internal Medicine | DX: I42.8 Other cardiomyopathies (principal); I13.0 Hypertensive heart and chronic kidney disease with heart failure and stage 1 through stage 4 chronic kidney disease, or unspecified chronic kidney disease; N18.9 Chronic kidney disease, unspecified; I50.9 Heart failure, unspecified; Z79.82 Long term (current) use of aspirin; F17.210 Nicotine dependence, cigarettes, uncomplicated; Z95.810 Presence of automatic (implantable) cardiac defibrillator | CPT/HCPCS: 99214 ==

== ENCOUNTER 2025-04-24 10:37 | Outpatient (CLI) | payer OTHER, MEDICAID, SELFPAY ==
[2025-04-24 11:46] LABS: Hematocrit 42.6 % (37-53); Hemoglobin 14.30 g/dL (11.27-16.99); Mean Corpuscular HGB Conc 33.6 g/dL (30-55); Mean Corpuscular Hemoglobin 33.3 pg (27-33); Mean Corpuscular Volume 99.1 fl (82-101); Nucleated Red Blood Cells % 0 %; Platelet Count 263 10^3/cmm (157-399); Red Blood Count 4.30 10^6/uL (3.85-5.65); White Blood Count 4.11 10^3/uL (3.29-11.43)
[2025-04-24 12:04] LABS: Albumin Level 3.9 g/dL (3.5-5.2); Anion Gap 17.3 (5-19); Blood Urea Nitrogen 10 mg/dL (6-20); Calcium 8.4 mg/dL (8.5-10.5); Carbon Dioxide 26 mmol/L (22-29); Chloride 103 mmol/L (98-107); Glucose 110 mg/dL (65-115); Potassium 3.3 mmol/L (3.5-5.1); Sodium 143 mmol/L (136-145)
== END 2025-04-24 10:38 | disposition home or self-care (01) ==
PROVIDERS: PCP Nurse Practitioner Family; Visit Provider Internal Medicine Nephrology
DX: N18.2 Chronic kidney disease, stage 2 (mild) (principal)
CPT/HCPCS: 36415; 80069; 85025